=== PATIENT | female | born 1950 | race Caucasian/White ===

== ENCOUNTER → 2017-08-28 | Day surgery (SDC) | payer MEDICARE, BC ==
[2017-08-24 12:07] LABS: BASOPHILS % 0.4 % (0.0-1.0); EOSINOPHILS # (AUTO) 0.1 (0.0-0.4); EOSINOPHILS % 0.6 % (0.0-6.0); HEMATOCRIT 39.8 % (34.2-44.1); HEMOGLOBIN 13.6 g/dL (12.0-16.0); LYMPHOCYTES # (AUTO) 2.9 (1.0-3.2); LYMPHOCYTES % 31.7 % (18.0-39.1); MEAN CORPUSCULAR HEMOGLOBIN 32.9 pg (28-32); MEAN CORPUSCULAR HGB CONC 34.2 g/dL (31-35); MEAN CORPUSCULAR VOLUME 96.1 fL (81-99); MONOCYTES # (AUTO) 0.7 (0.2-0.8); MONOCYTES % 7.9 % (4.4-11.3); NEUTROPHILS # (AUTO) 5.3 (2.1-6.9); NEUTROPHILS % 58.6 % (38.7-80.0); PLATELET COUNT 161 x10e3/uL (140-360); RED BLOOD COUNT 4.14 x10e6/uL (3.6-5.1); RED CELL DISTRIBUTION WIDTH 12.4 % (11.7-14.4)
[~2017-08-28] MED LIST: ADVAIR 250/501 EA IH; AMOXICILLIN875 MG PO; ATORVASTATIN CA20 MG PO; ESTRADIOL1 MG PO; FENTANYL CITRATE/PF 100MCG/2 ML INJ ONE; FUROSEMIDE40 MG PO; GLUCAGON FOR INJ 1 MG VIAL ONE; GUAIATUSSIN AC118 ML; HYOSCYAMINE SULFATE 0.5 MG/ML AMP ONE; KETAMINE HCL INJ 50 MG/ML 10 ML VIAL ONE; LISINOPRIL10 MG PO; LISINOPRIL20 MG PO; METOPROLOL SUCC50 MG PO; MIDAZOLAM HCL 2 MG/2 ML VIAL ONE; MULTIVITAMIN; NORCO 7.5-3251 EACH PO; OMEGA-31000 MG; POTASSIUM CHLO10 ME1 PO; PREDNISONE20 MG PO; PROAIR HFA INH8.5 GM; PROGESTERONE200 MG; PROPOFOL IV EMULSION 10 MG/ML 50 ML VIAL ONE; THYROXINE; TRIAMTERENE; VITAMIN D5000 UNIT; XANAX; XANAX1 MG PO; Z.0.ATENOLOL100 MG PO; Z.0.PREMARIN0.625 MG PO; Z.0.PROZAC20 MG PO
[2017-08-28 16:12] LABS: WBC,FECAL (FECAL LACTOFERRIN) POSITIVE (NEGATIVE)
--- NOTE | 2017-08-28 16:17 | Operative Report ---
DATE OF PROCEDURE: August 28, 2017 REFERRING PHYSICIAN: Dr. Ramon Clark PROCEDURE PERFORMED: Esophagogastroduodenoscopy with biopsies and a colonoscopy with polypectomy and biopsies INDICATIONS FOR ESOPHAGOGASTRODUODENOSCOPY: Heartburn, indigestion, melena.. INDICATIONS FOR COLONOSCOPY: Colorectal cancer screening, diarrhea. MEDICATION: Patient was done under MAC. Please see anesthesiologist's note. PROCEDURE: With patient in the left lateral decubitus position, the flexible fiberoptic Olympus gastroscope was introduced into the esophagus under direct visualization without any difficulty. There was some patchy erythema noted in distal esophagus. There was a mild stricture noted at the GE junction that was dilated to size 52-Japanese Melvin. The scope was then advanced with ease into the stomach traversing a small sliding hiatal hernia. Mucosa overlying the antrum and the body revealed some patchy intense erythema and moderate edema and biopsies were obtained and sent to stain for H. pylori. The pylorus was of normal contour and shape. Was intubated with ease and the scope was advanced all the way to the 2nd portion of the duodenum. Biopsies were obtained from the proximal 2nd portion to rule out sprue. The mucosa overlying the duodenal bulb appeared to be within normal limits. The scope was then withdrawn back into the stomach and retroflexed. And mucosa overlying the fundus and the cardia appeared to be within normal limits. The scope was then straightened out. The stomach was decompressed. Scope subsequently withdrawn. Patient tolerated the procedure well. IMPRESSION: 1. Distal esophagitis. 2. Small sliding hiatal hernia. 3. Gastritis biopsied. Biopsy sent to stain for H. pylori. 4. Rule out sprue. PLAN: Follow up histology. Initiate Protonix 40 mg 1 p.o. q.a.m. a.c. PROCEDURE: Patient was then turned around and after adequate lubrication of the anal canal a flexible fiberoptic Olympus colonoscope was inserted into the rectum with ease and advanced all the way to the cecum. Mucosa overlying the cecum grossly appeared to be within normal limits. The ileocecal valve was intubated and the scope was advanced into the terminal ileum. Biopsies were obtained. The scope was then withdrawn back into the colon. It was then withdrawn slowly. Mucosa overlying the ascending, transverse, descending and sigmoid revealed some patchy mild inflammatory changes. Multiple random biopsies were obtained. One polyp was hot biopsied from the descending colon. The scope was then retroflexed into the distal rectum. Small internal hemorrhoids were noted, none of which was actively bleeding. The scope was then straightened out. The rectosigmoid area as well as the distal rectal area were decompressed. Scope was subsequently withdrawn after securing an adequate stool specimen that was sent for the appropriate stool studies. Patient tolerated procedure well. IMPRESSION 1. Colitis, mild , patchy. 2. Descending colon polyp hot biopsied. 3. Internal hemorrhoids, none actively bleeding. PLAN: Follow up histology. Initiate Bentyl 20 mg 1 p.o. t.i.d. and VSL#3 DS 1 p.o. daily. The patient might benefit from a followup colonoscopy in 5 years. Job#: [id number] cc:RAMON CLARK MD
[2017-08-29 14:18] LABS: C DIFFICILE TOXIN A&B AMP PROB NEGATIVE (NEGATIVE)
== END | disposition home or self-care (01) ==
LOC: OR 11:27
PROVIDERS: ATTEND Internal Medicine Gastroenterology
DX: K52.9 Noninfective gastroenteritis and colitis, unspecified (principal); K63.5 Polyp of colon; K29.70 Gastritis, unspecified, without bleeding; K22.2 Esophageal obstruction; K21.9 Gastro-esophageal reflux disease without esophagitis; K20.9 Esophagitis, unspecified; K44.9 Diaphragmatic hernia without obstruction or gangrene; K64.8 Other hemorrhoids; E03.9 Hypothyroidism, unspecified; J44.9 Chronic obstructive pulmonary disease, unspecified; I11.0 Hypertensive heart disease with heart failure; I50.9 Heart failure, unspecified; I45.10 Unspecified right bundle-branch block; F41.9 Anxiety disorder, unspecified; F32.9 Major depressive disorder, single episode, unspecified; Z88.8 Allergy status to other drugs, medicaments and biological substances; Z01.810 Encounter for preprocedural cardiovascular examination; Z01.812 Encounter for preprocedural laboratory examination; Z68.33 Body mass index [BMI] 33.0-33.9, adult; Z96.659 Presence of unspecified artificial knee joint
CPT/HCPCS: 36415; 43239; 43450; 45384; 83630; 83993; 85025; 87045; 87177; 87328; 87493; 93005; J1610; J1980; J2250; 45378

== ENCOUNTER → 2017-12-21 | Outpatient (CLI) | payer MEDICARE, BC ==
[~2017-12-21] MED LIST changes: -FENTANYL CITRATE/PF 100MCG/2 ML INJ ONE; -GLUCAGON FOR INJ 1 MG VIAL ONE; -HYOSCYAMINE SULFATE 0.5 MG/ML AMP ONE; -KETAMINE HCL INJ 50 MG/ML 10 ML VIAL ONE; -MIDAZOLAM HCL 2 MG/2 ML VIAL ONE; -PROPOFOL IV EMULSION 10 MG/ML 50 ML VIAL ONE
--- NOTE | 2017-12-21 14:53 | Diagnostic Imaging Report ---
History: Alzheimer's disease with late onset Comparison studies: CT head 09/20/2007 Technique: Sagittal T2; axial DWI, FLAIR, MPGR, T1, Coronal FLAIR. Intravenous contrast: None Findings: Scalp: Normal in signal . No masses . Bone marrow: Normal in signal intensity. Extra-axial: No masses, no fluid collections. Brain sulci: Mildly prominent. Ventricles: Mildly prominent . No hydrocephalus . Parenchyma: Scattered and confluent T2/flair hyperintensities of the periventricular and deep white matter. Scattered hyperintensities at the brendon. Symmetric volume loss at the bilateral hippocampi. No masses, hemorrhage, acute or chronic vascular insults. Suprasellar region: No abnormalities. Craniocervical junction: No abnormalities. Patent foramen magnum. No Chiari one malformation. Vessels: Normal flow-voids in the arteries and sinuses. Incidentally noted 1 cm cystic structure in the right parotid gland superficial lobe anterior aspect. IMPRESSION: 1. No acute abnormalities. 2. Moderate to severe chronic microvascular ischemic changes of the white matter. 3. Diffuse and symmetric mild volume loss Signed by: DR Billy Tucker M.D. on 12/21/2017 2:50 PM
== END ==
LOC: MRI 13:25
PROVIDERS: ATTEND Psychiatry & Neurology Clinical Neurophysiology
DX: G30.1 Alzheimer's disease with late onset (principal)
CPT/HCPCS: 70551

== ENCOUNTER 2018-01-02 16:00 | Outpatient (RCR) | payer MEDICARE, BC | END 2018-01-09 | LOC: PT 16:00 | PROVIDERS: ATTEND Psychiatry & Neurology Clinical Neurophysiology | DX: H81.11 Benign paroxysmal vertigo, right ear (principal) | CPT/HCPCS: 97112 ×3; 97162; G8981; G8982 ==

== ENCOUNTER 2018-01-10 13:33 | Outpatient (RCR) | payer MEDICARE, BC | END 2018-02-08 | LOC: PT 13:33 | PROVIDERS: ATTEND Psychiatry & Neurology Clinical Neurophysiology | DX: H81.11 Benign paroxysmal vertigo, right ear (principal); R26.9 Unspecified abnormalities of gait and mobility; R26.81 Unsteadiness on feet ==

== ENCOUNTER 2018-04-26 13:04 | Emergency (ER) | payer MEDICARE, BC ==
[~2018-04-26] VITALS: Ht 170.2 cm; Wt 94.3 kg
--- OUTSIDE RECORDS SUMMARY | 2018-04-26 13:09 | XMS REPORT | Continuity of Care Document ---
Author Author [facility] Interface Address Unknown Phone Unavailable Problems Problem Status Onset Date Classification Date Reported Comments Source J44.9 Active 01/10/2017 [facility] Discharge Diagnosis: 04/22/2015 04/25/2015 [facility] SOB Active 04/22/2015 [facility] Anxiety disorder<sup>1</sup> Active 12/23/2014 Problem 01/21/2017 Data migrated from [employer] on 03/29/15. 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 Originally documented as Anxiety disorder due to medical condition. [facility] Generalized anxiety disorder<sup>2</sup> Active 12/23/2014 Problem 01/21/2017 Data migrated from [facility] on 03/29/15. Originally documented as Generalized anxiety disorder. 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 She dramatically improved but has chronic pain and PTSD like residual sensitive to G BP and amitriptyline the latter of which we were able to taper off. Originally documented as Injury of femoral nerve. 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 The norco use is too high and needs to be reduced. x Originally documented as Toxic encephalopathy. [facility] [place]kbom disease<sup>5</sup> Active 12/23/2014 Problem 01/21/2017 Data migrated from [employer] on 03/29/15. The patient has had a worsening of generalized pain worse in the evening and a variety of other symptoms that all began abruptly after her knee surgery. Some of the symptoms like alopecia are almost certainly due to anxiety. Some sound like RLS and would be expected to start or worsen after blood loss. The elevated ferritin level is an acute phase reactant as would be expected post surgery and does not imply an iron problem. Likewise the increased MCV is as expected for the recent blood loss. The patient is overusing Gramercy and this is leading to some toxic encephalopathy. Originally documented as RLS (restless legs syndrome). [facility] Final: Abnormality of Gait 12/12/2014 [facility] Final: Stiffness of Joint, Not Elsewhere Classified, Involving Lower Leg 12/12/2014 [facility] Final: Aftercare Following Joint Replacement 12/12/2014 [facility] Final: Knee Joint Replaced by Other Means 12/12/2014 [facility] HTN (<span ID="[id number]">Confirmed</span>) Resolved Problem 01/21/2017 [facility] Chronic pain syndrome Active Problem 12/05/2016 [facility] Long-term use of other medications - High Risk Active Problem 12/05/2016 [facility] Chronic pain syndrome Active Problem 08/21/2017 [facility] Pain in right knee Active Problem 08/21/2017 Is[facility] Becerra Other extermination supervisor drug therapy Active Problem 08/21/2017 [facility] Becerra Spasm of muscle Active Problem 08/21/2017 [facility] Pain in joint, lower leg Active Problem 12/05/2016 [facility] Bec[facility] Pain in left knee Active Problem 08/21/2017 [facility] Bec[facility] Complex regional pain syndrome I of left lower limb Active Problem 08/21/2017 [facility] Bec[facility] Myofascial pain Active Problem 08/21/2017 [facility] Becerra Right shoulder pain, unspecified chronicity Active Diagnosis 03/09/2017 Isael Becerra RT KNEE Active [facility] TKR Active [facility] CHRONIC OBSTRUCTIVE PULMONARY DISEASE, U Active [facility] Medications Medication Details Route Status Patient Instructions Ordering Provider Order Date Source Levocetirizine Dihydrochloride 1 tablet in the evening Orally Active 5 MG Orally Once a day prn Dayanna 12/11/2016 Isael Becerra Lortab 1 tablet as needed Orally Active 7.5-325 MG Orally every 6 hrs Dayanna 07/10/2016 Isael Becerra Gramercy 1 tablet as needed Orally Active 7.5-325 MG Orally QID Dayanna 05/13/2016 Isael Becerra Butrans 1 patch to skin Transdermal No Longer Active 15 MCG/HR Transdermal 1 patch Dayanna 04/13/2016 Isael Becerra predniSONE 20 mg oral tablet 40 mg=2 tab, PO, Daily, X 5 day, # 10 tab, 0 Refill(s) Active 04/22/2015 [facility] 200 ACTUAT Albuterol 0.09 MG/ACTUAT Metered Dose Inhaler 2 puff, INHALATION, Q4H, PRN for wheezing, # 9 gm, 0 Refill(s) Active 04/22/2015 [facility] Lortab 1 tablet as needed Orally Active 7.5-325 MG Orally every 6 hrs [facility] Isael Becerra Metoprolol Succinate ER 1 tablet Orally Active 50 MG Orally Once a day [facility] Isael Becerra Estradiol 1 tablet Orally Active 0.5 MG Orally [facility] Isael Becerra Lisinopril not defined NA Active 20mg [facility] Isael Becerra Fluoxetine HCl not defined NA Active 20mg [facility] Isael Becerra Alprazolam not defined NA Active 1 mg [facility] Isael Becerra Atorvastatin Calcium 1 tablet Orally Active 20 MG Orally Once a day [facility] Isael Becerra Progesterone Micronized 1 capsule at bedtime Orally Active 200 MG Orally Once a day [facility] Isael Becerra Levothyroxine Sodium 1 tablet on an empty stomach in the morning Orally Active 75 MCG Orally Once a day [facility] Isael Becerra Hydrocodone-Acetaminophen 1 tablet NA Active 7.5/325mg QID [facility] Isael Becerra Furosemide 1 tablet Orally Active 80 MG Orally Once a day [facility] Isael Becerra Premarin not defined NA Active 0.625 mg [facility] Isael Becerra Potassium Chloride ER 1 capsule with food Orally Active 10 MEQ Orally Twice a day [facility] Isael Becerra Levocetirizine Dihydrochloride 1 tablet in the evening Orally Active 5 MG Orally Once a day prn [facility] Isael Becerra Metoprolol Succinate ER 1 tablet Orally Active 50 MG Orally Once a day [facility] Isael Becerra Furosemide 1 tablet Orally Active 80 MG Orally Once a day [facility] Isael Becerra Estradiol 1 tablet Orally Active 0.5 MG Orally [facility] Isael Becerra Levothyroxine Sodium 1 tablet on an empty stomach in the morning Orally Active 75 MCG Orally Once a day [facility] Isael Becerra Lisinopril not defined NA Active 20mg [facility] Isael Becerra Alprazolam not defined NA Active 1 mg [facility] Isael Becerra Atorvastatin Calcium 1 tablet Orally Active 20 MG Orally Once a day [facility] Isael Becerra Progesterone Micronized 1 capsule at bedtime Orally Active 200 MG Orally Once a day [facility] Is[facility] Bec[facility] Lortab 1 tablet as needed Orally Active 7.5-325 MG Orally every 6 hrs Dayanna Becerra Hydrocodone-Acetaminophen 1 tablet NA Active 7.5/325mg QID [facility] Bec[facility] Fluoxetine HCl not defined NA Active 20mg [facility] Isael Becerra Gabapentin Unknown NA Active 300mg [facility] Isael Becerra Allergies, Adverse Reactions, Alerts Substance Category Reaction Severity Reaction type Status Date Reported Comments Source N.K.D.A. Adverse Reaction Info Not Available Adverse Reaction Active 03/07/2017 [facility] Immunizations Immunization Date Given Site Status Last Updated Comments Source Results Order Name Results Value Reference Range Date Interpretation Comments Source Chest 2 views DX Chest 2 views DX Clinical Indication: Annual checkup Comparison: April 22, 2015 FINDINGS: The PA and lateral chest radiographs shows normal lung volumes without interstitial or airspace opacities, pleural effusions or pneumothorax. The heart size and pulmonary vasculature are normal. The trachea is midline. There are no clinically significant osseous abnormalities noted. IMPRESSION: No chest radiographic evidence of acute cardiopulmonary disease. SL: [id number] 01/18/2017 - - Read by: Reymundo Tam MD Dictated Date/time: 01/18/17 14:07 Electronically Signed by: Reymundo Tam MD 01/18/17 14:07 FINAL REPORT [facility] URINE AND STOOL UA Urobilinogen <=1.0 mg/dL 0.1 - 1.0 04/22/2015 [facility] URINE AND STOOL UA Color Ltyellow 04/22/2015 [facility] URINE AND STOOL UA Nitrite Negative (04/22/15 11:27 AM) Negative 04/22/2015 [facility] URINE AND STOOL UA Sq Epi Few /LPF Few /LPF 04/22/2015 [facility] URINE AND STOOL UA WBC null 0 - 5 04/22/2015 [facility] URINE AND STOOL UA RBC 1 /HPF 0 - 2 04/22/2015 [facility] URINE AND STOOL UA Leuk Est Negative (04/22/15 11:27 AM) Negative 04/22/2015 [facility] URINE AND STOOL UA Turbidity Clear (04/22/15 11:27 AM) Clear 04/22/2015 [facility] URINE AND STOOL UA pH 5.0 5.0 - 8.0 04/22/2015 [facility] URINE AND STOOL UA Spec Grav 1.018 <=1.030 04/22/2015 [facility] URINE AND STOOL UA Bacteria Occasional /HPF None Seen /HPF 04/22/2015 [facility] URINE AND STOOL UA Ketones Negative mg/dL Negative mg/dL 04/22/2015 [facility] URINE AND STOOL UA Glucose Negative mg/dL Negative mg/dL 04/22/2015 [facility] URINE AND STOOL UA Bili Negative *NA* (04/22/15 11:27 AM) Negative 04/22/2015 [facility] URINE AND STOOL UA Blood Small *ABN* (04/22/15 11:27 AM) Negative 04/22/2015 [facility] URINE AND STOOL UA Protein Negative mg/dL Negative mg/dL 04/22/2015 [facility] CHEM PANEL B/C Ratio 20 6 - 25 04/22/2015 [facility] CHEM PANEL Globulin 3.6 g/dL 2.0 - 4.0 04/22/2015 [facility] CHEM PANEL AGAP 13.9 meq/L 10.0 - 20.0 04/22/2015 [facility] CHEM PANEL A/G Ratio 0.9 0.7 - 1.6 04/22/2015 [facility] CHEM PANEL eGFR 73 mL/min/1.73m2 04/22/2015 Result Comment: The eGFR is calculated using the CKD-EPI formula. In most young, healthy individuals the eGFR will be >90 mL/min/1.73m2. The eGFR declines with age. An eGFR of 60-89 may be normal in some populations, particularly the elderly, for whom the CKD-EPI formula has not been extensively validated. Use of the eGFR is not recommended in the following populations: Individuals with unstable creatinine concentrations, including patients and those with serious co-morbid conditions. Patients with extremes in muscle mass or diet. The data above are obtained from the National Kidney Disease Education Program (NKDEP) which additionally recommends that when the eGFR is used in patients with extremes of body mass index for purposes of drug dosing, the eGFR should be multiplied by the estimated BMI. [facility] CHEM PANEL Glucose Lvl 111 mg/dL 70 - 99 04/22/2015 [facility] CHEM PANEL Creatinine Lvl 0.85 mg/dL 0.50 - 1.40 04/22/2015 [facility] CHEM PANEL Sodium Lvl 136 meq/L 135 - 145 04/22/2015 [facility] CHEM PANEL Calcium Lvl 8.7 mg/dL 8.5 - 10.5 04/22/2015 [facility] CHEM PANEL Total Protein 7.0 g/dL 6.4 - 8.4 04/22/2015 [facility] CHEM PANEL Albumin Lvl 3.4 g/dL 3.5 - 5.0 04/22/2015 [facility] CHEM PANEL CO2 27 meq/L 24 - 32 04/22/2015 [facility] CHEM PANEL Chloride Lvl 99 meq/L 95 - 109 04/22/2015 [facility] CHEM PANEL Potassium Lvl 3.9 meq/L 3.5 - 5.1 04/22/2015 [facility] CHEM PANEL ALT 18 unit/L 0 - 65 04/22/2015 [facility] CHEM PANEL Bili Total 0.4 mg/dL 0.2 - 1.3 04/22/2015 [facility] CHEM PANEL AST 16 unit/L 0 - 37 04/22/2015 [facility] CHEM PANEL Alk Phos 97 unit/L 39 - 136 04/22/2015 [facility] CHEM PANEL BUN 17 mg/dL 7 - 22 04/22/2015 [facility] HEMATOLOGY Platelet 194 K/CMM 133 - 450 04/22/2015 [facility] HEMATOLOGY MPV 8.5 fL 7.4 - 10.4 04/22/2015 [facility] HEMATOLOGY RDW 13.4 % 11.5 - 14.5 04/22/2015 [facility] MCH 32.2 pg 27.0 - 31.0 04/22/2015 [facility] HEMATOLOGY Hct 35.7 % 36.0 - 48.0 04/22/2015 [facility] HEMATOLOGY MCV 98.5 fL 80.0 - 98.0 04/22/2015 [facility] HEMATOLOGY MCHC 32.7 g/dL 32.0 - 36.0 04/22/2015 [facility] HEMATOLOGY WBC 6.8 K/CMM 3.7 - 10.4 04/22/2015 [facility] HEMATOLOGY RBC 3.62 M/CMM 4.20 - 5.40 04/22/2015 [facility] HEMATOLOGY Hgb 11.7 g/dL 12.0 - 16.0 04/22/2015 [facility] HEMATOLOGY Monocytes # 0.6 K/CMM 0.0 - 0.8 04/22/2015 [facility] HEMATOLOGY Eosinophils # 0.2 K/CMM 0.0 - 0.5 04/22/2015 [facility] HEMATOLOGY Macrocyte 1+ *ABN* (04/22/15 9:45 AM) None Seen 04/22/2015 [facility] Basophils # 0.1 K/CMM 0.0 - 0.2 04/22/2015 [facility] HEMATOLOGY Segs 66.5 % 45.0 - 75.0 04/22/2015 [facility] Lymphocytes 20.5 % 20.0 - 40.0 04/22/2015 [facility] Monocytes 9.6 % 2.0 - 12.0 04/22/2015 [facility] Eosinophils 2.6 % 0.0 - 4.0 04/22/2015 [facility] Basophils 0.8 % 0.0 - 1.0 04/22/2015 [facility] Lymphocytes # 1.4 K/CMM 1.0 - 5.5 04/22/2015 [facility] Segs-Bands # 4.5 K/CMM 1.5 - 8.1 04/22/2015 [facility] Chest 2 views DX Chest 2 views DX NAME: EUGENIO GREEN : 1950 SEX: F Ordering Physician: Lang Gavin Chest 2 views : Apr 22, 2015 10:21:00 AM. CLINICAL INDICATION: Coughing. Comparison Examination: 03/26/2009. FINDINGS: Degenerative changes and mild scoliosis in the spine. Surgical clips in the right upper quadrant of the abdomen. Stable mild enlargement of the cardiac silhouette. The lung markings are more prominent now. No pleural effusions or confluent airspace opacities. Mildly tortuous aorta. IMPRESSION: 1. Mild enlargement of the cardiac silhouette. 2. Prominent lung markings. Differential considerations include pulmonary vascular congestion, interstitial pneumonitis, and/or pulmonary fibrosis. SL: 14 04/22/2015 - - Read by: Anish Kasper MD Dictated Date/time: 04/22/15 10:23 Electronically Signed by: Anish Kasper MD 04/22/15 10:29 FINAL REPORT [facility] Vital Signs Vital Sign Value Date Comments Source Weight 219.4 03/07/2017 [facility] Height 67 03/07/2017 [facility] Temperature Oral (F) 97.6 F 03/07/2017 [facility] Heart Rate 76 03/07/2017 [facility] Taoer Diastolic (mm Hg) 60 03/07/2017 [facility] Systolic (mm Hg) 142 03/07/2017 [facility] Weight 216.5 02/05/2017 [facility] Height 67 02/05/2017 [facility] Temperature Oral (F) 97 F 02/05/2017 [facility] Heart Rate 64 02/05/2017 [facility] Bec[facility] Diastolic (mm Hg) 80 02/05/2017 [facility] Bec[facility] Systolic (mm Hg) 122 02/05/2017 [facility] Weight 222.8 12/04/2016 [facility] Height 67 12/04/2016 [facility] Temperature Oral (F) 98.3 F 12/04/2016 [facility] Heart Rate 70 12/04/2016 [facility] Diastolic (mm Hg) 66 12/04/2016 [facility] Bec[facility] Systolic (mm Hg) 122 12/04/2016 [facility] Weight 222.1 11/03/2016 [facility] Bec[facility] Height 67 11/03/2016 [facility] Bec[facility] Temperature Oral (F) 97.4 F 11/03/2016 [facility] Heart Rate 76 11/03/2016 [facility] Bec[facility] Diastolic (mm Hg) 62 11/03/2016 [facility] Becerra Systolic (mm Hg) 132 11/03/2016 [facility] Weight 218.9 08/09/2016 [facility] Bec[facility] Height 67 08/09/2016 [facility] Bec[facility] Temperature Oral (F) 96.1 F 08/09/2016 [facility] Bec[facility] Heart Rate 68 08/09/2016 [facility] Becerra Diastolic (mm Hg) 80 08/09/2016 Is[facility] Becerra Systolic (mm Hg) 132 08/09/2016 [facility] Weight 210.4 07/10/2016 [facility] Bec[facility] Height 67 07/10/2016 [facility] Becerra Temperature Oral (F) 98.4 F 07/10/2016 [facility] Bec[facility] Heart Rate 84 07/10/2016 [facility] Becerra Diastolic (mm Hg) 58 07/10/2016 [facility] Becerra Systolic (mm Hg) 114 07/10/2016 [facility] Bec[facility] Weight 212 04/13/2016 [facility] Becerra Height 67 04/13/2016 [facility] Bec[facility] Temperature Oral (F) 96.6 F 04/13/2016 [facility] Diastolic (mm Hg) 82 04/13/2016 [facility] Bec[facility] Systolic (mm Hg) 128 04/13/2016 [facility] Bec[facility] Systolic (mm Hg) 109 04/22/2015 [facility] Diastolic (mm Hg) 61 04/22/2015 [facility] Heart Rate 82 04/22/2015 [facility] Temperature Oral (F) 99 F 04/22/2015 [facility] Height 170.18 cm 04/22/2015 [facility] BMI Calculated 33.27 04/22/2015 [facility] Weight 96.364 04/22/2015 [facility] Temperature Oral (F) 98.5 F 04/22/2015 [facility] Respitory Rate 18 04/22/2015 [facility] Heart Rate 86 04/22/2015 [facility] Systolic (mm Hg) 159 04/22/2015 [facility] Diastolic (mm Hg) 87 04/22/2015 [facility] Encounters Location Location Details Encounter Type Encounter Number Reason For Visit Attending Provider ADM Date DC Date Status Source [facility] [place] [facility] [id number] Gorge Vega 09/01/2014 10/01/2014 [facility] [place] [facility] [id number] Gorge Vega 11/17/2014 12/09/2014 [facility] [id number] Karin Laird 04/22/2015 04/22/2015 [facility] Franck Becerra MD [facility] [id number] 04/13/2016 04/13/2016 Is[facility] Bec[facility] Out[facility] [id number] Chandler Raymundo 01/18/2017 01/19/2017 [facility] Outpatient [id number] FRANCK MANRIQUEZ 01/21/2018 [facility] Procedures Procedure Code Date Perfomer Comments Source Knee replacement<sup>1</sup> [id number] bilateral [facility]
[2018-04-26] MEDS ORDERED: ACETAMINOPHEN 325 MG TAB PO ONE (15:00)
[2018-04-26 15:55] LABS: STREPTOCOCCUS GRP A ANTIGEN NEGATIVE (NEGATIVE)
[2018-04-26 16:13] LABS: INFLUENZAE A&B ANTIGEN (RAPID) NEGATIVE (NEGATIVE)
[2018-04-26 17:37] VITALS: BP 92/65
== END 2018-04-26 17:40 | disposition home or self-care (01) ==
LOC: ER 13:04
DX: R50.9 Fever, unspecified (principal); R05 Cough; I10 Essential (primary) hypertension
CPT/HCPCS: 83518; 87070; 87400; 99283

== ENCOUNTER 2019-12-22 16:04 | Emergency (ER) | payer MEDICARE, BC ==
[~2019-12-22] VITALS: Ht 170.2 cm; Wt 94.3 kg
[2019-12-22 16:51] LABS: BASOPHILS % 0.5 % (0.0-1.0); EOSINOPHILS # (AUTO) 0.1 (0.0-0.4); EOSINOPHILS % 1.8 % (0.0-6.0); HEMOGLOBIN 12.6 g/dL (12.0-16.0); LYMPHOCYTES # (AUTO) 1.9 (1.0-3.2); LYMPHOCYTES % 33.1 % (18.0-39.1); MEAN CORPUSCULAR HEMOGLOBIN 32.9 pg (28-32); MEAN CORPUSCULAR HGB CONC 33.2 g/dL (31-35); MEAN CORPUSCULAR VOLUME 99.2 fL (81-99); MONOCYTES # (AUTO) 0.5 (0.2-0.8); MONOCYTES % 8.7 % (4.4-11.3); NEUTROPHILS # (AUTO) 3.1 (2.1-6.9); NEUTROPHILS % 55.5 % (38.7-80.0); PLATELET COUNT 160 x10e3/uL (140-360); RED BLOOD COUNT 3.83 x10e6/uL (3.6-5.1); RED CELL DISTRIBUTION WIDTH 12.8 % (11.7-14.4)
--- OUTSIDE RECORDS SUMMARY | 2019-12-22 17:01 | XMS REPORT | Continuity of Care Document ---
Author Author Leelee Edouard Cost Effective Data EUGENIO Macias [facility] [employer] Information Exchange Address Unknown Phone Unavailable Care Team Providers Care Cherry Sorter Name Role Phone [facility] Unavailable Un available Problems Problem Status Onset Date Classification Date Reported Comments Source M25.551 - PAIN IN RIGHT HIP M25.552 - PA Active 02/14/2019 [facility] J44.9 Active 01/10/2017 [facility] Discharge Diagnosis: 04/22/2015 04/25/2015 [facility] SOB Active 0 04/22/2015 [facility] Anxiety disorder (disorder) Ac tive 12/23/2014 Problem 02/17/2019 Data migrated from [employer] on . 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 Originally documented as Anxiety disorder due to medical condition. [facility] Marian ast Generalized anxiety disorder (disorder) Active 12/23/2014 Problem 02/17/2019 Data migrated from [employer] on 03/29/15. Originally documented as Generalized anxiety disorder. 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 She dramatically improved but has chronic pain and PTSD like residual sensitive to GBP and amitriptyline the latter of which we were able to taper off. Originally documented as Injury of femoral nerve. [facility] Dimitri Toxic encephalopathy (disorder) Active 12/23/2014 Problem 02/17/2019 Data migrated from [employer] on 03/29/15. The norco use is too high and needs to be reduced. x Originally documented as Toxic encephalopathy. [facility] Dimitri Restless legs (disorder) Active 12/23/2014 Problem 02/17/2019 Data migrated from [employer] on . The patient has had a worsening of [...] recent blood loss. The patient is overusing [place] and this is leading to some toxic encephalopathy. Originally documented as RLS (restless legs syndrome). 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 therapy Active Problem 02/2018 Isael Taoer Spasm of muscle Active Problem 08/21/2017 Isael Becerra Chronic pain syndrome Active Problem 08/21/2017 Isael Becerra Complex regional pain syndrome I of left lower limb Active Problem 08/21/2017 Isael Becerra Myofascial pain Active Problem 08/21/2017 Isael Becerra Right shoulder pain, unspecified chronicity Active Diagnosis 03/09/2017 Isael Becerra Chronic pain syndrome Active Problem 12/05/2016 Isael Becerra Long-term (current) use of other medicat ions - High Risk Active Prob guillermo 12/05/2016 Isael Taoer Pain in joint, lower leg Active Problem 12/05/2016 Isael Becerra Final: Abnormality of Gait 12/12/2014 [facility] [place] Final: Stiffness of Joint, Not Elsewhere Classified, Involving Lower Leg 12/12/2014 [facility] [place] Final: Aftercare Following Joint Replacement 12/12/2014 [facility] Final: Knee Joint Replaced by Other Means 12/12/2014 [facility] Hypertensive disorder, systemic arterial (disorder) Resolved Problem 02/17/2019 [facility] KNEE Active [facility] TKR Active [facility] [place] CHRONIC OBSTRUCTIVE PULMONARY DISEASE, U Active [facility] Medications Medication Details Route Status Patient Instructions Ordering Provider Order Date Source Levocetirizine Dihydrochloride 1 tablet in the evening Orally Active 5 MG Orally Once a day prn Ez simone 12/11/2016 Isael Taoer Lortab 1 tablet as needed Orally Active 7.5-325 MG Orally every 6 hrs [facility] 07/10/2016 Isael Hernan [place] 1 tablet as needed Orally Active 7.5-325 MG Orally QID [facility] 05/13/2016 Isael Hernan Butrans 1 patch to skin Transdermal No Longer Active 15 MCG/HR Transdermal 1 patch [facility] 04/13/2016 Isael Becerra predniSONE 20 mg oral tablet 4 0 mg = 2 tab, PO, Daily, X 5 day, # 10 tab, 0 Refill(s) Active 04/22/2015 [facility] 200 ACTUAT Albuterol 0.09 MG/ACTUAT [place] red Dose Inhaler 2 puff, INHALATION, Q4H, PRN for wheezin g, # 9 gm, 0 Refill(s) Active 04/22/2015 [facility] Metoprolol Succinate ER 1 tabl et Orally Active 50 MG Orally Once a day [facility] Isael Becerra Furosemide 1 tablet Orally Active 80 MG Orally Once a day [facility] Hernan Estradiol 1 tablet Orally Active 0.5 MG Orally [facility] Hernan Levothyroxine Sodium 1 tablet on an empty stomach in the morning Orally Active 75 MCG Orally Once a day [facility] Isael Becerra Lisinopril not defined NA Active 20mg [facility] Isael Becerra Alprazolam not defined NA Active 1 mg [facility] Isael Becerra Atorvastatin Calcium 1 tablet Orally Active 20 MG Orally Once a day [facility] Isael Becerra Progesterone Micronized 1 caps ule at bedtime Orally Active 200 MG Orally Once a day [facility] Isael Becerra Lortab 1 tablet as needed Orally Active 7.5-325 MG Orally every 6 hrs [facility] Isael Becerra Hydrocodone-Acetaminophen 1 ta blet NA Active 7. 5/325mg QID [facility] Hernan Fluoxetine HCl not defined NA Active 20mg [facility] yudith Becerra Hydrocodone-Acetaminophen 1 ta blet NA Active 7. 5/325mg QID [facility] yudith Becerra Lisinopril not defined NA Active 20mg [facility] Isael Becerra Atorvastatin Calcium 1 tablet Orally Active 20 MG Orally Once a day [facility] Isael Becerra Progesterone Micronized 1 caps ule at bedtime Orally Active 200 MG Orally Once a day Dayannajojo Becerra Alprazolam not defined NA Active 1 mg [facility] Isael Becerra Fluoxetine HCl not defined NA Active 20mg [facility] Sebastien Becerra Estradiol 1 tablet Orally Active 0.5 MG Orally [facility] Sebastien Becerra Levothyroxine Sodium 1 tablet on an empty stomach in the morning Orally Active 75 MCG Orally Once a day [facility] jojo Becerra Metoprolol Succinate ER 1 tabl et Orally Active 50 MG Orally Once a day [facility] Isael Becerra Lortab 1 tablet as needed Orally Active 7.5-325 MG Orally every 6 hrs [facility] Isael Becerra Furosemide 1 tablet Orally Active 80 MG Orally Once a day [facility] Sebastien Becerra Premarin not defined NA Active 0.625 mg [facility] Isael Becerra Potassium Chloride ER 1 capsul e with food Orally Active 10 MEQ Orally Twice a day Daaynna Becerra Levocetirizine Dihydrochloride 1 tablet in the evening Orally Active 5 MG Orally Once a day prn [facility] Isael Becerra Gabapentin Unknown NA Active 300mg [facility] Isael Becerra Allergies, Adverse Reactions, Alerts Substance Category Reaction Severity Reaction type Status Date Reported Comments Source N.K.D.A. Adverse Reaction Info Not Available Adverse Reaction Active 03/07/2017 Isael Becerra No Known Medication Allergies Assertion Drug aller gy OPID [place] Immunizations No Data Provided for This Section Results Order Name Results Value Reference Range Date Interpretation Comments Source URINE AND STOOL UA Urobilinogen <=1.0 mg/dL 0.1 - 1.0 04/22/2015 [facility] URINE AND STOOL UA Color Ltyellow 04/22/2015 [facility] URINE AND STOOL UA Nitrite Negative (04/22/15 11:27 AM) Negative 04/22/2015 [facility] URINE AND STOOL UA Sq Epi Few /LPF Few /LPF 04/22/2015 [facility] URINE AND STOOL UA WBC <1 0 - 5 04/22/2015 [facility] URINE AND STOOL UA RBC 1 0 - 2 04/22/2015 [facility] URINE AND STOOL UA Leuk Est Negative (04/22/15 11:27 AM) Negative 04/22/2015 [facility] URINE AND STOOL UA Turbidity Clear (04/22/15 11:27 AM) Clear 04/22/2015 [facility] URINE AND STOOL UA pH 5.0 5.0 - 8.0 04/22/2015 [facility] URINE AND STOOL UA Spec Grav 1.018 <=1.030 04/22/2015 [facility] URINE AND STOOL UA Bacteria Occasional /HPF None Seen /HPF 04/22/2015 [facility] URINE AND STOOL UA Ketones Negative mg/dL Negative mg/dL 04/22/2015 [facility] URINE AND STOOL UA Glucose Negative mg/dL Negative mg/dL 04/22/2015 [facility] URINE AND STOOL UA Bili Negative *NA* (04/22/15 11:27 AM) Negative 04/22/2015 [facility] URINE AND STOOL UA Blood Small *ABN* (04/22/15 11:27 AM) Negative 04/22/2015 [facility] URINE AND STOOL UA Protein Negative mg/dL Negative mg/dL 04/22/2015 [facility] CHEM PANEL B/C Ratio 20 6 - 25 04/22/2015 [facility] CHEM PANEL Globulin 3.6 2.0 - 4.0 04/22/2015 [facility] CHEM PANEL AGAP 13.9 10.0 - 20.0 04/22/2015 [facility] CHEM PANEL A/G Ratio 0.9 0.7 - 1.6 04/22/2015 [facility] CHEM PANEL eGFR 73 04/22/2015 Result Comment: The eGFR is calculated [...] should be multiplied by the estimated BMI. [facility] CHEM PANEL Glucose Lvl 111 70 - 99 04/22/2015 [facility] CHEM PANEL Creatinine Lvl 0.85 0.50 - 1.40 04/22/2015 [facility] CHEM PANEL Sodium Lvl 136 135 - 145 04/22/2015 [facility] CHEM PANEL Calcium Lvl 8.7 8.5 - 10.5 04/22/2015 [facility] CHEM PANEL Total Protein 7.0 6.4 - 8.4 04/22/2015 [facility] CHEM PANEL Albumin Lvl 3.4 3.5 - 5.0 04/22/2015 [facility] CHEM PANEL CO2 27 24 - 32 04/22/2015 [facility] CHEM PANEL Chloride Lvl 99 95 - 109 04/22/2015 [facility] CHEM PANEL Potassium Lvl 3.9 3.5 - 5.1 04/22/2015 [facility] CHEM PANEL ALT 18 0 - 65 04/22/2015 [facility] CHEM PANEL Bili Total 0.4 0.2 - 1.3 04/22/2015 [facility] CHEM PANEL AST 16 0 - 37 04/22/2015 [facility] CHEM PANEL Alk Phos 97 39 - 136 04/22/2015 [facility] CHEM PANEL BUN 17 7 - 22 04/22/2015 [facility] HEMATOLOGY Platelet 194 133 - 450 04/22/2015 [facility] HEMATOLOGY MPV 8.5 7.4 - 10.4 04/22/2015 [facility] HEMATOLOGY RDW 13.4 11.5 - 14.5 04/22/2015 [facility] HEMATOLOGY MCH 32.2 27.0 - 31.0 04/22/2015 [facility] HEMATOLOGY Hct 35.7 36.0 - 48.0 04/22/2015 [facility] HEMATOLOGY MCV 98.5 80.0 - 98.0 04/22/2015 [facility] MCHC 32.7 32.0 - 36.0 04/22/2015 [facility] HEMATOLOGY WBC 6.8 3.7 - 10.4 04/22/2015 [facility] HEMATOLOGY RBC 3.62 4.20 - 5.40 04/22/2015 [facility] HEMATOLOGY Hgb 11.7 12.0 - 16.0 04/22/2015 [facility] HEMATOLOGY Monocytes # 0.6 0.0 - 0.8 04/22/2015 [facility] HEMATOLOGY Eosinophils # 0.2 0.0 - 0.5 04/22/2015 [facility] HEMATOLOGY Macrocyte 1+ *ABN* (04/22/15 9:45 AM) None Seen 04/22/2015 [facility] HEMATOLOGY Basophils # 0.1 0.0 - 0.2 04/22/2015 [facility] HEMATOLOGY Segs 66.5 45.0 - 75.0 04/22/2015 [facility] HEMATOLOGY Lymphocytes 20.5 20.0 - 40.0 04/22/2015 [facility] HEMATOLOGY Monocytes 9.6 2.0 - 12.0 04/22/2015 [facility] HEMATOLOGY Eosinophils 2.6 0.0 - 4.0 04/22/2015 [facility] HEMATOLOGY Basophils 0.8 0.0 - 1.0 04/22/2015 [facility] Lymphocytes # 1.4 1.0 - 5.5 04/22/2015 [facility] HEMATOLOGY Segs-Bands # 4.5 1.5 - 8.1 04/22/2015 [facility] Pathology Reports No Data Provided for This Section Diagnostic Reports Report Value Date Source Pelvis AP DX EXAM: Pelvis AP D X HISTORY: - M25.551 Pain in right hip; M25.552 Pain in left hip COMPARISON: None AP pelvis IMPRESSION: There is bilateral moderate severe hip joint space narrowing without significant osteophyte formation. No fracture or evidence of avascular necrosis. 02/14/2019 [facility] Chest 2 views DX Clinical Myra cation: Annual checkup Comparison: April 22, 2015 FINDINGS: The PA and lateral chest radiographs shows normal lung volumes without interstitial or airspace opacities, pleural effusions or pneumothorax. The heart size and pulmonary vasculature are normal. The trachea is midline. There are no clinically significant osseous abnormalities noted. IMPRESSION: No chest radiographic evidence of acute cardiopulmonary disease. SL: [id number] 01/18/2017 [facility] Chest 2 views DX NAME: EUGENIO HOFFMAN : 1950 SEX: F Ordering Physician: Lang [...] IMPRESSION: 1. Mild enlargement of the cardiac silho uette. 2. Prominent lung markings. Differential considerations include pulmonary vascular congestion, interstitial pneumonitis, and/or pulmonary fibrosis. SL: 14 04/22/2015 [facility] Consultation Notes No Data Provided for This Section Discharge Summaries No Data Provided for This Section History and Physicals No Data Provided for This Section Vital Signs Vital Sign Value Date Comments Source Weight 219.4 03/07/2017 Isael Becerra Height 67 1 05/08/2016 Isael Becerra Temperature Oral (F) 97.6 F 03/07/2017 Isael Becerra Heart Rate 76 03/07/2017 Isael Becerra Diastolic (mm Hg) 60 03/07/2017 Isael Becerra Systolic (mm Hg) 142 03/07/2017 Isael Becerra Weight 216.5 02/05/2017 Isael Becerra Height 67 1 04/07/2016 Isael Becerra Temperature Oral (F) 97 F 02/05/2017 Isael Becerra Heart Rate 64 02/05/2017 Isael Becerra Diastolic (mm Hg) 80 02/05/2017 Isael Becerra Systolic (mm Hg) 122 02/05/2017 Isael Becerra Weight 222.8 12/04/2016 Isael Becerra Height 67 0 12/04/2016 Isael Becerra Temperature Oral (F) 98.3 F 12/04/2016 Isael Becerra Heart Rate 70 12/04/2016 Isael Becerra Diastolic (mm Hg) 66 12/04/2016 Isael Becerra Systolic (mm Hg) 122 12/04/2016 Isael Becerra Weight 222.1 11/03/2016 Isael Becerra Height 67 0 11/03/2016 Isael Becerra Temperature Oral (F) 97.4 F 11/03/2016 Isael Becerra Heart Rate 76 11/03/2016 Isael Becerra Diastolic (mm Hg) 62 11/03/2016 Isael Becerra Systolic (mm Hg) 132 11/03/2016 Isael Becerra Weight 218.9 08/09/2016 Isael Becerra Height 67 0 08/09/2016 Isael Becerra Temperature Oral (F) 96.1 F 08/09/2016 Isael Becerra Heart Rate 68 08/09/2016 Isael Becerra Diastolic (mm Hg) 80 08/09/2016 Isael Becerra Systolic (mm Hg) 132 08/09/2016 Isael Becerra Weight 210.4 07/10/2016 Isael Becerra Height 67 0 07/10/2016 Isael Becerra Temperature Oral (F) 98.4 F 07/10/2016 Isael Becerra Heart Rate 84 07/10/2016 Isael Becerra Diastolic (mm Hg) 58 07/10/2016 Isael Becerra Systolic (mm Hg) 114 07/10/2016 Isael Becerra Weight 212 04/13/2016 Isael Becerra Height 67 0 04/13/2016 Isael Taoer Temperature Oral (F) 96.6 F 04/13/2016 Isael Taoer Diastolic (mm Hg) 82 04/13/2016 Isael Becerra Systolic (mm Hg) 128 04/13/2016 Isaelamy Becerra Systolic (mm Hg) 109 04/22/2015 [facility] Diastolic (mm Hg) 61 04/22/2015 [facility] Heart Rate 82 04/22/2015 [facility] Temperature Oral (F) 99 F 04/22/2015 [facility] Height 170.18 cm 04/22/2015 [facility] BMI Calculated 33.27 04/22/2015 [facility] Weight 96.364 04/22/2015 [facility] Temperature Oral (F) 98.5 F 04/22/2015 [facility] Respitory Rate 18 04/22/2015 [facility] Heart Rate 86 04/22/2015 [facility] Systolic (mm Hg) 159 04/22/2015 [facility] Diastolic (mm Hg) 87 04/22/2015 [facility] Encounters Location Location Details Encounter Type Encounter Number Reason For Visit Attending Provider ADM Date DC Date Status Source [facility] [place] [facility] [id number] [facility] 09/01/2014 10/01/2014 [facility] [place] [facility] Patients [id number] [facility] 11/17/2014 12/09/2014 [facility] [id number] 00 Karin Laird 04/22/2015 04/22/2015 [facility] Franck Becerra MD [facility] [id number] 04/13/19 17 04/13/2016 [facility] Outpatient [id number] Chandler Raymundo 01/18/2017 01/19/2017 [facility] Outpatient [id number] [facility] 01/21/2018 [facility] Ambulatory Pre-Reg [id number] [facility] 01/21/2018 01/21/2018 [facility] [id number] [facility] 07/25/2018 Active [facility] Outpatient [id number] Franck Frankel 07/25/2018 07/26/2018 [facility] Neu[facility] Phone Message [id number] 08/20/2018 08/22/2018 [facility] [place] [facility] Di[facility] Services [id number] 01 Gwendolyn Dee 02/14/2019 02/15/2019 [facility] Procedures Procedure Code Date Perfomer Comments Source Knee replacement<sup>1</sup> 1 [id number] bilateral [facility], [facility], [facility] Assessment and Plan No Data Provided for This Section Plan of Care No Data Provided for This Section Social History Social History Date Source Social History ElementQualifiersDate Rep orted Tobacco Use: . Are you a:: never smoker Apr 13, 2016 Pets: none. Apr 13, 2016 Marital Status: . Apr 13, 2016 Diet: no. Apr 13, 2016 Caffeine: yes. frequency: Apr 13, 2016 Exercise: no. Apr 13, 2016 Alcohol: no. Apr 13, 2016 Travel outside [place]: no. Apr 13, 2016 Occup. exposure: none. Apr 13, 2016 Occupation: unemployed. Apr 13, 2016 04/13/2016 Isael Taoer Social History TypeResponse Smoking Status Former smoker; Exposure to Tobacco Smoke None; Cigarette Smoking Last 365 Days Yes; Reg Smoking Cessation Counseling No 04/22/2015 [facility] Social History TypeResponse Smoking Status Former smoker; Exposure to Tobacco Smoke None; Cigarette Smoking Last 365 Days Yes; Reg Smoking Cessation Counseling No entered on: 04/22/15 04/22/2015 [facility] Social History TypeResponse Smoking Status Former smoker; Exposure to Tobacco Smoke None; Cigarette Smoking Last 365 Days Yes; Reg Smoking Cessation Counseling No entered on: 04/22/15 04/22/2015 [facility] No data available for this section 12/09/2014 [facility] Family History No Data Provided for This Section Advance Directives No Data Provided for This Section Functional Status No Data Provided for This Section
--- OUTSIDE RECORDS SUMMARY | 2019-12-22 17:02 | XMS REPORT | Continuity of Care Document ---
Author Author [facility] t Organization [facility] Address [address] [place] [address] Phone Unavailable Care Team Providers Care Receiver Setter Name Role Phone Kimberly CLARK PCP Oliverio Dee Attphys Pito Frankel Attphys Javier ZHANG Attphys Unavailable Chandler Raymundo Attphys Karin Laird Attphys Rasheed Vgea Attphys Payers Payer Name Policy Type Policy Number Effective Date Expiration Date [id number] 2016 00:00:00 [facility] Medicare A & B [id number] 2016 00:00:00 [facility] Problems Condition Name Condition Details Condition Category Status Onset Date Resolution Date Last Treatment Date Treating Clinician Comments Source M25.551 - PAIN IN RIGHT HIP M25.552 - PA M25.551 - PAIN IN RIGHT HIP M25.552 - PA Active 02/14/2019 DARIUSZ THURSTON Rober Diagnosis Active 2019-02-14 00:01:00 2019-02-14 15:04:00 Javier Nunn J44.9 J44. 9 Active 01/10/2017 DARIUSZ Mosley Diagnosis Active 2017-01-10 00:00:00 2017-01-18 13:00:00 [facility] SOB SOB Active 04/22/2015 [facility] Diagnosis Active 2015-04-22 00:00:00 2015-04-22 13:35:00 M [facility] Anxiety disorder (disorder) An xiety disorder (disorder) Active 12/23/2014 Problem 02/17/2019 Data migrated from [employer] on 03/29/15. 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 Originally documented as Anxiety disorder due to medical condition. Birdie Gaxiola BERTRAND [facility] Dimitri Problem Active 2014-12-23 0 0:00:00 2019-02-17 00:08:40 [facility] Generalized anxiety disorder (disorder) Generalized anxiety disorder (disorder) Active 12/23/2014 Problem 02/17/2019 Data migrated from [employer] on 03/29/15. Originally documented as Generalized anxiety disorder. 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 She dramatically improved but has chronic pain and PTSD like residual sensitive to GBP and amitriptyline the latter of which we were able to taper off. Originally documented as Injury of femoral nerve. 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 The norco use is too high and needs to be reduced. x Originally documented as Toxic encephalopathy. Birdie Gaxiola BERTRAND [facility] Problem Active 2014-12-23 00:00:00 2019-02-17 00:08:40 [facility] Restless legs (disorder) Rest less legs (disorder) Active 12/23/2014 Problem 02/17/2019 Data migrated from [employer] on 03/29/15. The patient has had a [...] recent blood loss. The patient is overusing [place] and this is leading to some toxic encephalopathy. Originally documented as RLS (restless legs syndrome). Birdie Gaxiola BERTRAND [facility] Problem Acti ve 2014-12-23 00:00:00 2019-02-17 00:08:40 M padmini Nunn Final: Abnormality of Gait Fin al: Abnormality of Gait 12/12/2014 [facility] Rober Problem 2014-12-12 01:59:23 [facility] Final: Stiffness of Joint, Not Elsewhere Classified, I nvolving Lower Leg Final: Stiffness of Joint, Not Elsewhere Classified, Involving Lower Leg 12/12/2014 [facility] Rober Problem 2014-12-12 01:59:23 [facility] Final: Aftercare Following Joint Replacement Final: Aftercare Following Joint Replacement 12/12/2014 [facility] [place] Problem 2014-12-12 01:59:23 [facility] Final: Knee Joint Replaced by Other Means Final: Knee Joint Replaced by Other Means 12/12/2014 [facility] Rober Problem 2014-12-12 01:59:23 [facility] [address] Hypertensive disorder, systemic arterial (disorder) Hypertensive disorder, systemic arterial (disorder) Resolved Problem 02/17/2019 [facility]ola [facility] Problem Resolved 2019-02-17 00:08:40 Leelee Nunn Pain in right knee Pain in right knee Active Problem 08/21/2017 Isael Becerra Problem Active 2017-08-21 02:49:59 [facility] [place] Pain in left knee Pain in left knee Active Problem 08/21/2017 Isael Becerra Problem Active 2017-08-21 02:49:59 [facility] [place] Other snf (current) drug therapy 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 Active Problem 08/21/2017 Isael Becerra Problem Ac tive 2017-08-21 02:49:59 [facility] Spasm of muscle Spas m of muscle Active Problem 08/21/2017 Isael Taoer Problem Active 2017-08-21 02:49:59 [facility] Chronic pain syndrome Wax Cutter fidel pain syndrome Active Problem 08/21/2017 Isael Becerra Problem Active 2017-08-21 02:49:59 [facility] Complex regional pain syndrome I of left lower limb Complex regional pain syndrome I of left lower limb Active Problem 08/21/2017 Isael Taoer Problem Active 2017-08-21 02:49:59 [facility] Myofascial pain Myof ascial pain Active Problem 08/21/2017 Isael Taoer Problem Active 2017-08-21 02:49:59 [facility] Right shoulder pain, unspecified chronicity Right shoulder pain, unspecified chronicity Active Diagnosis 03/09/2017 Isael Becerra Diagnosis Active 2017-03-09 03:46:11 [facility] Chronic pain syndrome Wax Cutter fidel pain syndrome Active Problem 12/05/2016 Isael Becerra Problem Active 2016-12-05 02:46:35 [facility] Long-term (current) use of other medications - High Ri Long-term (current) use of other medications - High Risk Active Problem 12/05/2016 Isael Becerra Problem Active 2016-12-05 02:46:35 [facility] Pain in joint, lower leg Pain in joint, lower leg Active Problem 12/05/2016 Isael Becerra Problem Active 2016-12-05 02 :46:35 [facility] RT KNEE RT K NEE Active [facility] [place] Diagnosis Active 2014-09-01 12:07:00 [facility] TKR TKR Active [facility] [place] Diagnosis Active 2015-01-11 16:42:00 [facility] CHRONIC OBSTRUCTIVE PULMONARY DISEASE, U CHRONIC OBSTRUCTIVE PULMONARY DISEASE, U Active [facility] Diagnosis Active 2017-01-18 13:00:00 [facility] Discharge Diagnosis: Disc harge Diagnosis: 04/22/2015 04/25/2015 [facility] Problem 2015-04-22 06:00:00 2015-04-25 05:5 4:04 2015-04-25 05:54:04 [facility] Allergies, Adverse Reactions, Alerts Allergy Name Allergy Type Status Severity Reaction(s) Onset Date Inacti ve Date Treating Clinician Comments Source No Known Allergies DA Active U 2018-04-27 00:00:00 [facility] Partha Chavis Active Info Not Available 2017-03-07 00:00:00 [facility] No Known Allergies DA Active U 2010-05-20 00:00:00 [facility] No Known Medication Allergies No Known Medication Allergies Active [facility] Social History Social Habit Start Date Stop Date Quantity Comments Source TobaccoUse: 2016-04-13 00:00:00 2016-04-13 00:00:00 [facility] Social History 2014-12-09 15:06:00 2014-12-09 15:06:00 [facility] Smoking Status Start Date Stop Date Source Social History 2015-04-22 15:48:29 2015-04-22 15:48:29 [facility] Medications Ordered Medication Name Filled Medication Name Start Date Stop Da te Current Medication? Ordering Clinician Indication Dosage Frequency Signature (SIG) Comments Components Source Metoprolol Succinate ER 2017-03-09 03:46:11 Yes [place] Dayanna 1 tablet [facility] Furosemide 2017-03-09 03:46:11 Yes [place] Dayanna 1 tablet [facility] Estradiol 2017-03-09 03:46:11 Yes [place] Dayanna 1 t ablet [facility] Levothyroxine Sodium 2017-03-09 03:46:11 Yes [place] Dayanna 1 tablet on an empty stomach in the morning [facility] Lisinopril 2017-03-09 03:46:11 Yes [place] Dayanna no t defined [facility] Alprazolam 2017-03-09 03:46:11 Yes Guido Dayanna no t defined [facility] Atorvastatin Calcium 2017-03-09 03:46:11 Yes Guido Dayanna 1 tablet [facility] Progesterone Micronized 2017-03-09 03:46:11 Yes [place] Ez simone 1 capsule at bedtime [facility] Lortab 2017-03-09 03:46:11 Yes [place] Dayanna 1 tabl et as needed [facility] Hydrocodone-Acetaminophen 2017-03-09 03:46:11 Yes [place] M unshi 1 tablet [facility] Fluoxetine HCl 2017-03-09 03:46:11 Yes [place] Dayanna not defined [facility] Levocetirizine Dihydrochloride 2016-12-11 00:00:00 Yes O abdirahman Dayanna 1 tablet in the evening [facility] Hydrocodone-Acetaminophen 2016-12-05 02:46:35 Yes [place] M unshi 1 tablet [facility] Lisinopril 2016-12-05 02:46:35 Yes Guido Dayanna no t defined [facility] Atorvastatin Calcium 2016-12-05 02:46:35 Yes Guido Dayanna 1 tablet [facility] Progesterone Micronized 2016-12-05 02:46:35 Yes [place] Ez simone 1 capsule at bedtime [facility] Alprazolam 2016-12-05 02:46:35 Yes Guido Dayanna no t defined [facility] Fluoxetine HCl 2016-12-05 02:46:35 Yes [place] Dayanna not defined [facility] Estradiol 2016-12-05 02:46:35 Yes Guido Dayanna 1 t ablet [facility] Levothyroxine Sodium 2016-12-05 02:46:35 Yes Guido Dayanna 1 tablet on an empty stomach in the morning [facility] Metoprolol Succinate ER 2016-12-05 02:46:35 Yes [place] Dayanna 1 tablet [facility] Lortab 2016-12-05 02:46:35 Yes [place] Dayanna 1 tabl et as needed [facility] Furosemide 2016-12-05 02:46:35 Yes [place] Dayanna 1 tablet [facility] Premarin 2016-08-10 02:46:09 Yes [place] Dayanna not defined [facility] Potassium Chloride ER 2016-08-10 02:46:09 Yes Guido Munsh i 1 capsule with food [facility] Levocetirizine Dihydrochloride 2016-08-10 02:46:09 Yes O abdirahman Dayanna 1 tablet in the evening [facility] Lortab 2016-07-10 00:00:00 Yes [place] Dayanna 1 tabl et as needed [facility] [place] 2016-05-13 00:00:00 Yes Guido Dayanna 1 table t as needed [facility] Gabapentin 2016-04-14 03:52:12 Yes [place] Dayanna Un known [facility] Butrans 2016-04-13 00:00:00 No [place] Dayanna 1 pat ch to skin [facility] predniSONE 20 mg oral tablet 2015-04-22 18:22:00 Yes 40 mg = 2 tab, PO, Daily, X 5 day, # 10 tab, 0 Refill(s) [facility] 200 ACTUAT Albuterol 0.09 MG/ACTUAT Metered Dose Inhaler 2015-04-22 18:22:00 Yes 2 puff, INHALATION, Q4H, PRN for wheezing, # 9 gm, 0 Refill(s) [facility] Atorvastatin Calcium 20 Mg Tablet Atorvastatin Calcium 20 Mg Tablet Yes 20 Bedtime [facility] Estradiol 1 Mg Tab Estradiol 1 Mg Tab Yes .5 Da lico [facility] Furosemide 40 Mg Tablet Furosemide 40 Mg Tablet Yes 80 Twice A Day [facility] Lisinopril 10 Mg Tablet Lisinopril 10 Mg Tablet Yes 20 Daily [facility] Metoprolol Succinate 50 Mg Tab.er.24h Metoprolol Succinate 50 Mg Ta b.er.24h Yes 50 Daily [facility] Torrance-3 Fatty Acids (Torrance-3) 1,000 Mg Capsule [place]-3 Fatty Acids ([place]rance-3) 1,000 Mg Capsule Yes [facility] Potassium Chloride 10 Meq Tab.er.prt Potassium Chloride 10 Meq Tab. er.prt Yes 10 [facility] Progesterone,Micronized (Progesterone) 200 Mg Capsule Progesterone,Micronized (Progesterone) 200 Mg Capsule Yes [facility] Thyroxine L Thyroxine L Yes 100 C [facility] Cholecalciferol (Vitamin D3) (Vitamin D) 5,000 Unit Ta [place]let, Cholecalciferol (Vitamin D3) (Vitamin D) 5,000 Unit Tablet, 2017-08-28 00:00:00 No [facility] Fluoxetine Hcl (Prozac) 20 Mg Capsule, 20 Mg Oral Fluo xetine Hcl (Prozac) 20 Mg Capsule, 20 Mg Oral 2017-08-28 00:00:00 No 20 Brianna y [facility] Albuterol Sulfate (Proair Hfa Inhaler*) 8.5 Gm Inh, Al buterol Sulfate (Proair Hfa Inhaler*) 8.5 Gm Inh, 2017-08-27 00:00:00 No As Needed [facility] Alprazolam (Xanax*) 1 Mg Tablet, 1 Mg Oral Alprazolam (Xanax*) 1 Mg Tablet, 1 Mg Oral 2017-08-27 00:00:00 No 1 As Needed [facility] Estrogens,Conjugated (Premarin) 0.625 Mg Tablet, 0.625 Mg Oral Estrogens,Conjugated (Premarin) 0.625 Mg Tablet, 0.625 Mg Oral 2017-08-27 00:00:00 No .625 Daily [facility] Hydrocodone Bit/Acetaminophen ([place] 7.5-325 Tablet) 1 Each Tablet, 7.5 Mg Oral Hydrocodone Bit/Acetaminophen ([place] 7.5-325 Tablet) 1 Each Tablet, 7.5 Mg Oral 2017-08-27 00:00:00 No 7.5 Three Times A Day as needed for Pain [facility] Lisinopril (Prinavil / Zestril) 20 Mg Tablet, 20 Mg Or al Lisinopril (Prinavil / Zestril) 20 Mg Tablet, 20 Mg Oral 2017-08-27 00:00:00 No 20 Daily [facility] Prednisone 20 Mg Tab, 20 Mg Oral Prednisone 20 Mg Tab, 20 Mg Ora l 2017-08-27 00:00:00 No 20 Daily [facility] Triamterene , Triamterene , 2017-08-27 00:00:00 No Daily [facility] Atenolol 100 Mg Tablet, 100 Mg Oral Atenolol 100 Mg Tablet, 100 Mg Oral 2016-02-29 00:00:00 No 100 Daily [facility] Amoxicillin 875 Mg Tablet, 875 Mg Oral Amoxicillin 875 Mg Tablet , 875 Mg Oral 2016-02-23 00:00:00 No 875 Twice A Day [facility] Guaifenesin/Codeine Phosphate (Guaiatussin Ac Liquid) 118 Ml Liquid, Guaifenesin/Codeine Phosphate (Guaiatussin Ac Liquid) 118 Ml Liquid, 2016-02-23 00:00:00 No [facility] Multivitamin , Multivitamin , 2016-02-23 00:00:00 No Daily [facility] Salmeterol Xinaf/Fluticasone (Advair 250/50) 1 Ea Disk , 1 Ea Inhalation Salmeterol Xinaf/Fluticasone (Advair 250/50) 1 Ea Disk, 1 Ea Inhalation 2016-02-23 00:00:00 No 1 [facility] Erin Khan , 2016-02-23 00:00:00 No As Needed [facility] Vital Signs Vital Name Observation Time Observation Value Comments Source Weight 2017-03-07 16:00:00 [facility] Height 2017-03-07 16:00:00 [facility] Temperature Oral (F) 2017-03-07 16:00:00 97.6 F [facility] Heart Rate 2017-03-07 16:00:00 [facility] Diastolic (mm Hg) 2017-03-07 16:00:00 [facility] Systolic (mm Hg) 2017-03-07 16:00:00 Shubham xochitl Simonsann Weight 2017-02-05 16:30:00 [facility] [place] Height 2017-02-05 16:30:00 [facility] Temperature Oral (F) 2017-02-05 16:30:00 97 F [facility] Heart Rate 2017-02-05 16:30:00 [facility] Diastolic (mm Hg) 2017-02-05 16:30:00 [facility] [place] Systolic (mm Hg) 2017-02-05 16:30:00 Shubham xochitl Simonsann Weight 2016-12-04 13:45:00 [facility] Height 2016-12-04 13:45:00 [facility] Temperature Oral (F) 2016-12-04 13:45:00 98.3 F [facility] Heart Rate 2016-12-04 13:45:00 [facility] Diastolic (mm Hg) 2016-12-04 13:45:00 [facility] Systolic (mm Hg) 2016-12-04 13:45:00 Shubham xochitl Simonsann Weight 2016-11-03 15:45:00 [facility] Height 2016-11-03 15:45:00 [facility] Temperature Oral (F) 2016-11-03 15:45:00 97.4 F [facility] Heart Rate 2016-11-03 15:45:00 [facility] Diastolic (mm Hg) 2016-11-03 15:45:00 [facility] Systolic (mm Hg) 2016-11-03 15:45:00 Sh[facility]ham [facility] [place] Weight 2016-08-09 14:30:00 [facility] Height 2016-08-09 14:30:00 [facility] Temperature Oral (F) 2016-08-09 14:30:00 96.1 F [facility] Heart Rate 2016-08-09 14:30:00 [facility] Diastolic (mm Hg) 2016-08-09 14:30:00 [facility] [place] Systolic (mm Hg) 2016-08-09 14:30:00 Shubham rial [place] Weight 2016-07-10 14:15:00 [facility] Height 2016-07-10 14:15:00 [facility] Temperature Oral (F) 2016-07-10 14:15:00 98.4 F [facility] Heart Rate 2016-07-10 14:15:00 [facility] Diastolic (mm Hg) 2016-07-10 14:15:00 [facility] Systolic (mm Hg) 2016-07-10 14:15:00 Shubham rial [place] Weight 2016-04-13 15:15:00 [facility] [place] Height 2016-04-13 15:15:00 [facility] Temperature Oral (F) 2016-04-13 15:15:00 96.6 F [facility] Diastolic (mm Hg) 2016-04-13 15:15:00 [facility] [place] Systolic (mm Hg) 2016-04-13 15:15:00 Sh[facility]ham [facility] [place] Systolic (mm Hg) 2015-04-22 18:51:00 Shubham rial [place] Diastolic (mm Hg) 2015-04-22 18:51:00 [facility] [place] Heart Rate 2015-04-22 18:51:00 [facility] Temperature Oral (F) 2015-04-22 18:51:00 99 F [facility] Height 2015-04-22 15:28:00 170.18 cm [facility] BMI Calculated 2015-04-22 15:28:00 [facility] [place] Weight 2015-04-22 15:28:00 [facility] Temperature Oral (F) 2015-04-22 15:28:00 98.5 F [facility] Respitory Rate 2015-04-22 15:28:00 [facility] [place] Heart Rate 2015-04-22 15:28:00 [facility] Systolic (mm Hg) 2015-04-22 15:28:00 Shubham riaallyssa Walsh Diastolic (mm Hg) 2015-04-22 15:28:00 [facility] [place] Procedures Procedure Date / Time Performed Performing Clinician Noman oneal Magnetic resonance imaging of brain without contrast 2017-12 00:00:00 AJIT ZHANG Javier [facility] EGD BIOPSY SINGLE/MULTIPLE 2017-08-28 00:00:00 LUZ MARINA NICOLAS [facility] DILATE ESOPHAGUS 1/MULT PASS 2017-08-28 00:00:00 LUZ MARINA NICOLAS [facility] COLONOSCOPY W/LESION REMOVAL 2017-08-28 00:00:00 LUZ MARINA NICOLAS [facility] Knee replacement<sup>1</sup> [facility] [place] Encounters Start Date/Time End Date/Time Encounter Type Admission Type [facility] Care Department Encounter ID Source 2019-02-14 14:52:00 2019-02-14 23:59:00 Outpatient Gwendolyn Dee MHHOIP MHHOIP [id number] 2018-08-20 15:06:06 2018-08-21 23:59:59 Outpatient MHMIS JATINDER MHMISCHER [id number] 2018-07-25 12:00:00 2018-07-25 23:59:59 Outpatient MarlysSteve MHMISCHER MHMISCHER [id number] 2018-04-26 13:04:00 2018-04-26 13:04:00 Registered Emergency Room [facility] [id number] [facility] 2018-01-10 13:33:00 2018-02-08 23:59:00 Discharged Recurring [facility] [id number] [facility] 2018-01-21 16:00:00 2018-01-21 16:00:00 Outpatient Steve Frankel MHMISCHER MHMISCHER [id number] 2017-12-24 13:01:00 2018-01-09 23:59:00 Discharged Recurring [facility] [id number] [facility] 2017-12-21 13:25:00 2017-12-21 13:25:00 Registered Clinic 3 AJIT ZHANG [facility] [id number] [facility] 2017-08-28 11:27:00 2017-08-28 11:27:00 Registered Surgical Day Care [facility] [id number] [facility] 2017-08-20 09:10:00 2017-08-20 09:10:00 [facility] [id number] Isael Becerra MD 2017-05-04 16:39:00 2017-05-04 16:39:00 [facility] [id number] Isael Becerra MD 2017-05-04 14:54:00 2017-05-04 14:54:00 [facility] [id number] Isael Becerra MD 2017-05-04 08:47:00 2017-05-04 08:47:00 Outpatient [facility] [id number] Isael Becerra MD 2017-05-04 08:41:00 2017-05-04 08:41:00 Outpatient [facility] [id number] Isael Becerra MD 2017-04-02 08:25:00 2017-04-02 08:25:00 Outpatient [facility] [id number] Isael Becerra MD 2017-03-07 10:00:00 2017-03-07 10:00:00 Outpatient [facility] [id number] Isael Becerra MD 2017-02-05 10:30:00 2017-02-05 10:30:00 Outpatient [facility] [id number] DARIUSZ Becerra MD 2017-01-18 12:52:00 2017-01-18 23:59:00 Outpatient Latha Raymundo [facility] [id number] 2016-12-04 08:45:00 2016-12-04 08:45:00 Outpatient [facility] [id number] Isael Becerra MD 2016-11-03 10:45:00 2016-11-03 10:45:00 Outpatient [facility] [id number] Isael Becerra MD 2016-08-09 09:30:00 2016-08-09 09:30:00 Outpatient [facility] [id number] Isael Becerra MD 2016-07-10 09:15:00 2016-07-10 09:15:00 Outpatient [facility] [id number] Isael Becerra MD 2016-05-30 13:10:00 2016-05-30 13:10:00 Outpatient [facility] [id number] Isael Becerra MD 2016-05-30 13:08:00 2016-05-30 13:08:00 Outpatient [facility] [id number] Isael Becerra MD 2016-04-13 09:15:00 2016-04-13 09:15:00 Outpatient MD Franck Fong MD [id number] DARIUSZ Becerra MD 2015-04-22 09:17:00 2015-04-22 12:53:00 Outpatient Eitan Karin [facility] [id number] 2014-11-17 16:00:00 2014-12-09 10:06:00 Outpatient Gorge Evangelista [id number] 2014-09-01 11:47:00 2014-09-30 23:59:00 Outpatient Gorge Evangelista [id number] Results Test Description Test Time Test Comments Results Result Comments Source BASIC METABOLIC PANEL 2018-05-09 05:37:00 Test Item SODIUM (test code = NA) 145 mmol/L 136-145 N POTASSIUM (test code = K) 4.3 mmol/L 3.5-5.1 N CHLORIDE (test code = CL) 115.0 mmol/L 98-107 H CARBON DIOXIDE (test code = CO2) 24.0 mmol/L 21-32 N ANION GAP (test code = GAP) 10.3 10-20 N GLUCOSE (test code = GLU) 85 mg/dL 74-106 N BLOOD UREA NITROGEN (test code = BUN) 14 mg/dL 7-18 N GLOMERULAR FILTRATION RATE (test code = GFR) 41 mL/min >=60 Estimated GFR by using Modified MDRD formula.Chronic kidney disease is defined as either kidney damageor GFR <60 mL/min/1.73 m2 for >3 months. CREATININE (test code = CREAT) 1.30 mg/dL 0.55-1.02 H Note change in reference range due to change in reagent. BUN/CREATININE RATIO (test code = BUN/CREA) 11.0 10-20 N CALCIUM (test code = CA) 8.7 mg/dL 8.5-10.1 N BASIC METABOLIC [id number] 05:36:00* Test Item Value Reference Range Interpretation Comments SODIUM (test code = NA) 145 mmol/L 136-145 N POTASSIUM (test code = K) 4.3 mmol/L 3.5-5.1 N CHLORIDE (test code = CL) 115.0 mmol/L 98-107 H CARBON DIOXIDE (test code = CO2) mmol/L 21-32 ANION GAP (test code = GAP) 10-20 GLUCOSE (test code = GLU) mg/dL 74-106 BLOOD UREA NITROGEN (test code = BUN) mg/dL 7-18 GLOMERULAR FILTRATION RATE (test code = GFR) mL/min >=60 CREATININE (test code = CREAT) mg/dL 0.55-1.02 BUN/CREATININE RATIO (test code = BUN/CREA) 10-20 CALCIUM (test code = CA) mg/dL 8.5-10.1 BASIC METABOLIC [id number] 05:50:00* Test Item Value Reference Range Interpretation Comments SODIUM (test code = NA) 145 mmol/L 136-145 N POTASSIUM (test code = K) 4.7 mmol/L 3.5-5.1 N CHLORIDE (test code = CL) 114.0 mmol/L 98-107 H CARBON DIOXIDE (test code = CO2) 22.0 mmol/L 21-32 N ANION GAP (test code = GAP) 13.7 10-20 N GLUCOSE (test code = GLU) 80 mg/dL 74-106 N BLOOD UREA NITROGEN (test code = BUN) 13 mg/dL 7-18 N GLOMERULAR FILTRATION RATE (test code = GFR) 45 mL/min >=60 Estimated GFR by using Modified MDRD formula.Chronic kidney disease is defined as either kidney damageor GFR <60 mL/min/1.73 m2 for >3 months. CREATININE (test code = CREAT) 1.20 mg/dL 0.55-1.02 H Note change in reference range due to change in reagent. BUN/CREATININE RATIO (test code = BUN/CREA) 10.5 10-20 N CALCIUM (test code = CA) 8.2 mg/dL 8.5-10.1 L [id number] 05:50:00* Test Item Value Reference Range Interpretation Comments PHOSPHORUS (test code = PHOS) 3.0 mg/dL 2.5-4.9 N [id number] 05:50:00* Test Item Value Reference Range Interpretation Comments MAGNESIUM (test code = MAG) 2.1 mg/dL 1.8-2.4 N BASIC METABOLIC [id number] 05:45:00* Test Item Value Reference Range Interpretation Comments SODIUM (test code = NA) 145 mmol/L 136-145 N POTASSIUM (test code = K) 4.7 mmol/L 3.5-5.1 N CHLORIDE (test code = CL) 114.0 mmol/L 98-107 H CARBON DIOXIDE (test code = CO2) mmol/L 21-32 ANION GAP (test code = GAP) 10-20 GLUCOSE (test code = GLU) mg/dL 74-106 BLOOD UREA NITROGEN (test code = BUN) mg/dL 7-18 GLOMERULAR FILTRATION RATE (test code = GFR) mL/min >=60 CREATININE (test code = CREAT) mg/dL 0.55-1.02 BUN/CREATININE RATIO (test code = BUN/CREA) 10-20 CALCIUM (test code = CA) mg/dL 8.5-10.1 [id number] 05:45:00* Test Item Value Reference Range Interpretation Comments PHOSPHORUS (test code = PHOS) mg/dL 2.5-4.9 [id number] 05:45:00* Test Item Value Reference Range Interpretation Comments MAGNESIUM (test code = MAG) mg/dL 1.8-2.4 BASIC METABOLIC [id number] 08:26:00* Test Item Value Reference Range Interpretation Comments SODIUM (test code = NA) 146 mmol/L 136-145 H POTASSIUM (test code = K) 4.1 mmol/L 3.5-5.1 N CHLORIDE (test code = CL) 114.0 mmol/L 98-107 H CARBON DIOXIDE (test code = CO2) 27.0 mmol/L 21-32 N ANION GAP (test code = GAP) 9.1 10-20 L GLUCOSE (test code = GLU) 97 mg/dL 74-106 N BLOOD UREA NITROGEN (test code = BUN) 13 mg/dL 7-18 N GLOMERULAR FILTRATION RATE (test code = GFR) 38 mL/min >=60 Estimated GFR by using Modified MDRD formula.Chronic kidney disease is defined as either kidney damageor GFR <60 mL/min/1.73 m2 for >3 months. CREATININE (test code = CREAT) 1.40 mg/dL 0.55-1.02 H Note change in reference range due to change in reagent. BUN/CREATININE RATIO (test code = BUN/CREA) 9.4 10-20 L CALCIUM (test code = CA) 8.4 mg/dL 8.5-10.1 L [id number] 08:26:00* Test Item Value Reference Range Interpretation Comments PHOSPHORUS (test code = PHOS) 1.5 mg/dL 2.5-4.9 L [id number] 08:26:00* Test Item Value Reference Range Interpretation Comments MAGNESIUM (test code = MAG) 1.7 mg/dL 1.8-2.4 L BASIC METABOLIC [id number] 08:21:00* Test Item Value Reference Range Interpretation Comments SODIUM (test code = NA) 146 mmol/L 136-145 H POTASSIUM (test code = K) 4.1 mmol/L 3.5-5.1 N CHLORIDE (test code = CL) 114.0 mmol/L 98-107 H CARBON DIOXIDE (test code = CO2) mmol/L 21-32 ANION GAP (test code = GAP) 10-20 GLUCOSE (test code = GLU) mg/dL 74-106 BLOOD UREA NITROGEN (test code = BUN) mg/dL 7-18 GLOMERULAR FILTRATION RATE (test code = GFR) mL/min >=60 CREATININE (test code = CREAT) mg/dL 0.55-1.02 BUN/CREATININE RATIO (test code = BUN/CREA) 10-20 CALCIUM (test code = CA) mg/dL 8.5-10.1 [id number] 08:21:00* Test Item Value Reference Range Interpretation Comments PHOSPHORUS (test code = PHOS) mg/dL 2.5-4.9 [id number] 08:21:00* Test Item Value Reference Range Interpretation Comments MAGNESIUM (test code = MAG) mg/dL 1.8-2.4 CBC W/O [id number] 08:15:00* Test Item Value Reference Range Interpretation Comments WHITE BLOOD CELL (test code = WBC) 9.7 K/mm3 4.5-12.5 N RED BLOOD CELL (test code = RBC) 3.23 mill/mm3 3.7-5.2 L HEMOGLOBIN (test code = HGB) 10.1 gram/dL 11.5-15.5 L HEMATOCRIT (test code = HCT) 32.1 % 36.0-46.0 L MEAN CELL VOLUME (test code = MCV) 99.4 fL 80-98 H MEAN CELL HGB (test code = MCH) 31.3 picogram 27.0-33.0 N MEAN CELL HGB CONCETRATION (test code = MCHC) 31.5 gram/dL 33.0-36. 0 L RED CELL DISTRIBUTION WIDTH (test code = RDW) 13.5 % 11.6-16. 2 N PLATELET COUNT (test code = PLT) 208 K/mm3 150-450 N MEAN PLATELET VOLUME (test code = MPV) 10.7 fL 6.7-11.0 N BASIC METABOLIC [id number] 05:30:00* Test Item Value Reference Range Interpretation Comments SODIUM (test code = NA) 149 mmol/L 136-145 H POTASSIUM (test code = K) 4.2 mmol/L 3.5-5.1 N CHLORIDE (test code = CL) 118.0 mmol/L 98-107 H CARBON DIOXIDE (test code = CO2) 23.0 mmol/L 21-32 N ANION GAP (test code = GAP) 12.2 10-20 N GLUCOSE (test code = GLU) 118 mg/dL 74-106 H BLOOD UREA NITROGEN (test code = BUN) 20 mg/dL 7-18 H GLOMERULAR FILTRATION RATE (test code = GFR) 38 mL/min >=60 Estimated GFR by using Modified MDRD formula.Chronic kidney disease is defined as either kidney damageor GFR <60 mL/min/1.73 m2 for >3 months. CREATININE (test code = CREAT) 1.40 mg/dL 0.55-1.02 H Note change in reference range due to change in reagent. BUN/CREATININE RATIO (test code = BUN/CREA) 14.7 10-20 N CALCIUM (test code = CA) 8.6 mg/dL 8.5-10.1 N CBC W/O [id number] 05:04:00* Test Item Value Reference Range Interpretation Comments WHITE BLOOD CELL (test code = WBC) 8.3 K/mm3 4.5-12.5 N RED BLOOD CELL (test code = RBC) 3.19 mill/mm3 3.7-5.2 L HEMOGLOBIN (test code = HGB) 10.0 gram/dL 11.5-15.5 L HEMATOCRIT (test code = HCT) 30.9 % 36.0-46.0 L MEAN CELL VOLUME (test code = MCV) 96.9 fL 80-98 N MEAN CELL HGB (test code = MCH) 31.3 picogram 27.0-33.0 N MEAN CELL HGB CONCETRATION (test code = MCHC) 32.4 gram/dL 33.0-36. 0 L RED CELL DISTRIBUTION WIDTH (test code = RDW) 13.6 % 11.6-16. 2 N PLATELET COUNT (test code = PLT) 193 K/mm3 150-450 RESULT VERIFIED BY REPEAT ANALYSIS MEAN PLATELET VOLUME (test code = MPV) 10.4 fL 6.7-11.0 N [id number] 13:05:00* Test Item Value Reference Range Interpretation Comments CORTISOL (test code = CORTR) 35.38 mcg/dL 3.44-22.45 H Please Note Change in REFERENCE RANGE BASIC METABOLIC [id number] 07:00:00* Test Item Value Reference Range Interpretation Comments SODIUM (test code = NA) 149 mmol/L 136-145 H POTASSIUM (test code = K) 4.5 mmol/L 3.5-5.1 N CHLORIDE (test code = CL) 117.0 mmol/L 98-107 H CARBON DIOXIDE (test code = CO2) 23.0 mmol/L 21-32 N ANION GAP (test code = GAP) 13.5 10-20 N GLUCOSE (test code = GLU) 113 mg/dL 74-106 H BLOOD UREA NITROGEN (test code = BUN) 29 mg/dL 7-18 H RESULT VERIFIED BY REPEAT ANALYSIS GLOMERULAR FILTRATION RATE (test code = GFR) 50 mL/min >=60 Estimated GFR by using Modified MDRD formula.Chronic kidney disease is defined as either kidney damageor GFR <60 mL/min/1.73 m2 for >3 months. CREATININE (test code = CREAT) 1.10 mg/dL 0.55-1.02 H Note change in reference range due to change in reagent. BUN/CREATININE RATIO (test code = BUN/CREA) 26.4 10-20 H CALCIUM (test code = CA) 8.7 mg/dL 8.5-10.1 N [id number] 07:00:00* Test Item Value Reference Range Interpretation Comments PHOSPHORUS (test code = PHOS) 2.1 mg/dL 2.5-4.9 L [id number] 07:00:00* Test Item Value Reference Range Interpretation Comments MAGNESIUM (test code = MAG) 2.0 mg/dL 1.8-2.4 N BASIC METABOLIC [id number] 06:53:00* Test Item Value Reference Range Interpretation Comments SODIUM (test code = NA) 149 mmol/L 136-145 H POTASSIUM (test code = K) 4.5 mmol/L 3.5-5.1 N CHLORIDE (test code = CL) 117.0 mmol/L 98-107 H CARBON DIOXIDE (test code = CO2) mmol/L 21-32 ANION GAP (test code = GAP) 10-20 GLUCOSE (test code = GLU) mg/dL 74-106 BLOOD UREA NITROGEN (test code = BUN) mg/dL 7-18 GLOMERULAR FILTRATION RATE (test code = GFR) mL/min >=60 CREATININE (test code = CREAT) mg/dL 0.55-1.02 BUN/CREATININE RATIO (test code = BUN/CREA) 10-20 CALCIUM (test code = CA) mg/dL 8.5-10.1 [id number] 06:53:00* Test Item Value Reference Range Interpretation Comments PHOSPHORUS (test code = PHOS) mg/dL 2.5-4.9 [id number] 06:53:00* Test Item Value Reference Range Interpretation Comments MAGNESIUM (test code = MAG) mg/dL 1.8-2.4 BASIC METABOLIC [id number] 13:59:00* Test Item Value Reference Range Interpretation Comments SODIUM (test code = NA) 146 mmol/L 136-145 H POTASSIUM (test code = K) 4.5 mmol/L 3.5-5.1 N CHLORIDE (test code = CL) 117.0 mmol/L 98-107 H CARBON DIOXIDE (test code = CO2) 22.0 mmol/L 21-32 N ANION GAP (test code = GAP) 11.5 10-20 N GLUCOSE (test code = GLU) 121 mg/dL 74-106 H BLOOD UREA NITROGEN (test code = BUN) 45 mg/dL 7-18 H GLOMERULAR FILTRATION RATE (test code = GFR) 41 mL/min >=60 Estimated GFR by using Modified MDRD formula.Chronic kidney disease is defined as either kidney damageor GFR <60 mL/min/1.73 m2 for >3 months. CREATININE (test code = CREAT) 1.30 mg/dL 0.55-1.02 H Note change in reference range due to change in reagent. BUN/CREATININE RATIO (test code = BUN/CREA) 34.4 10-20 H CALCIUM (test code = CA) 8.2 mg/dL 8.5-10.1 L BASIC METABOLIC [id number] 13:58:00* Test Item Value Reference Range Interpretation Comments SODIUM (test code = NA) 146 mmol/L 136-145 H POTASSIUM (test code = K) 4.5 mmol/L 3.5-5.1 N CHLORIDE (test code = CL) 117.0 mmol/L 98-107 H CARBON DIOXIDE (test code = CO2) mmol/L 21-32 ANION GAP (test code = GAP) 10-20 GLUCOSE (test code = GLU) mg/dL 74-106 BLOOD UREA NITROGEN (test code = BUN) mg/dL 7-18 GLOMERULAR FILTRATION RATE (test code = GFR) mL/min >=60 CREATININE (test code = CREAT) mg/dL 0.55-1.02 BUN/CREATININE RATIO (test code = BUN/CREA) 10-20 CALCIUM (test code = CA) mg/dL 8.5-10.1 - XR CHEST 1 [id number] 13:40:00 FAX: Billie Antunez MD [phone] [place]: St: ADM FAX: Isaiah Michelle MD [phone] FAX: Erasto Waldron MD [phone] Name: EUGENIO GREEN [facility] : 1950 Age/S: 68/F [address] [facility] Unit #: [id number] Loc: V.3018 [place] [address] Phys: Isaiah Deras MD Acct: [id number] Dis Date: Status: ADM IN PH ONE #: [phone] Exam Date: 05/04/2018 1310 FAX #: [phone] Reason: dyspnea EXAMS: CPT CODE: [id number] XR CHEST 1 V [id number] EXAM: Chest x- ray, one view; INFORMATION: Dyspnea, hypertension; IMPRESSION: 1. No acute cardiothoracic abnormalities. 2. No deepti nge compared with the recent study from May 02, 2018, showing mild cardiomegaly calcifications. at 1340 Reported and signed by: Rom Membreno M.D. CC: Billie Ocampo MD; Isaiah Deras MD; Erasto Clark MD Tech nologist: SHARI BAR RT(R) Trnscrd Date/Ti me/By: 05/04/2018 (0486) : By: JoanneGRW Orig Print D/T: S: 05/05/2018 (9969) PAGE 1 Signed Report CBC W/AUTO [id number] 08:49:00* Test Item Value Reference Range Interpretation Comments WHITE BLOOD CELL (test code = WBC) 6.3 K/mm3 4.5-12.5 N RED BLOOD CELL (test code = RBC) 3.36 mill/mm3 3.7-5.2 L HEMOGLOBIN (test code = HGB) 10.5 gram/dL 11.5-15.5 L HEMATOCRIT (test code = HCT) 33.1 % 36.0-46.0 L MEAN CELL VOLUME (test code = MCV) 98.5 fL 80-98 H MEAN CELL HGB (test code = MCH) 31.3 picogram 27.0-33.0 N MEAN CELL HGB CONCETRATION (test code = MCHC) 31.7 gram/dL 33.0-36. 0 L RED CELL DISTRIBUTION WIDTH (test code = RDW) 14.1 % 11.6-16. 2 N RED CELL DISTRIBUTION WIDTH SD (test code = RDW-SD) 51.0 fL 37 .0-51.0 N PLATELET COUNT (test code = PLT) 146 K/mm3 150-450 L MEAN PLATELET VOLUME (test code = MPV) 11.6 fL 6.7-11.0 H NEUTROPHIL % (test code = NT%) 43.5 % 39.0-69.0 N IMMATURE GRANULOCYTE % (test code = IG%) 1.1 % 0.0-5.0 N LYMPHOCYTE % (test code = LY%) 37.7 % 25.0-55.0 N MONOCYTE % (test code = MO%) 16.6 % 0.0-10.0 H EOSINOPHIL % (test code = EO%) 0.8 % 0.0-5.0 N BASOPHIL % (test code = BA%) 0.3 % 0.0-1.0 N NUCLEATED RBC % (test code = NRBC%) 0.0 % 0-0 N NEUTROPHIL # (test code = NT#) 2.74 K/mm3 1.8-7.7 N IMMATURE GRANULOCYTE # (test code = IG#) 0.07 x10 3/uL 0-0.03 H LYMPHOCYTE # (test code = LY#) 2.38 K/mm3 1.0-5.0 N MONOCYTE # (test code = MO#) 1.05 K/mm3 0-0.8 H EOSINOPHIL # (test code = EO#) 0.05 K/mm3 0.0-0.5 N BASOPHIL # (test code = BA#) 0.02 K/mm3 0.0-0.2 N NUCLEATED RBC # (test code = NRBC#) 0.00 K/mm3 0.0-0.1 N MANUAL DIFF REQUIRED (test code = MDIFF) NO COMPREHENSIVE METABOLIC [id number] 05:31:00* Test Item Value Reference Range Interpretation Comments SODIUM (test code = NA) 147 mmol/L 136-145 H RESU LT VERIFIED BY REPEAT ANALYSIS POTASSIUM (test code = K) 4.9 mmol/L 3.5-5.1 N CHLORIDE (test code = CL) 114.0 mmol/L 98-107 H CARBON DIOXIDE (test code = CO2) 23.0 mmol/L 21-32 N ANION GAP (test code = GAP) 14.9 10-20 N GLUCOSE (test code = GLU) 78 mg/dL 74-106 N BLOOD UREA NITROGEN (test code = BUN) 53 mg/dL 7-18 H RESULT VERIFIED BY REPEAT ANALYSIS GLOMERULAR FILTRATION RATE (test code = GFR) 30 mL/min >=60 Estimated GFR by using Modified MDRD formula.Chronic kidney disease is defined as either kidney damageor GFR <60 mL/min/1.73 m2 for >3 months. CREATININE (test code = CREAT) 1.70 mg/dL 0.55-1.02 H Note change in reference range due to change in reagent. BUN/CREATININE RATIO (test code = BUN/CREA) 30.5 10-20 H TOTAL PROTEIN (test code = PROT) 5.2 gram/dL 6.4-8.2 L ALBUMIN (test code = ALB) 2.5 g/dL 3.4-5.0 L GLOBULIN (test code = GLOB) 2.7 gram/dL 2.7-4.2 N ALBUMIN/GLOBULIN RATIO (test code = A/G) 0.9 0.75-1.50 N CALCIUM (test code = CA) 7.5 mg/dL 8.5-10.1 L BILIRUBIN TOTAL (test code = BILT) 0.20 mg/dL 0.0-1.0 N SGOT/AST (test code = AST) 43 IUnit/L 15-37 H SGPT/ALT (test code = ALT) 21 IUnit/L 12-78 N ALKALINE PHOSPHATASE TOTAL (test code = ALKP) 53 IUnit/L 45-117 N Note change in reference range due to change in reagent. COMPREHENSIVE METABOLIC [id number] 05:30:00* Test Item Value Reference Range Interpretation Comments SODIUM (test code = NA) 147 mmol/L 136-145 H RESU LT VERIFIED BY REPEAT ANALYSIS POTASSIUM (test code = K) 4.9 mmol/L 3.5-5.1 N CHLORIDE (test code = CL) 114.0 mmol/L 98-107 H CARBON DIOXIDE (test code = CO2) 23.0 mmol/L 21-32 N ANION GAP (test code = GAP) 14.9 10-20 N GLUCOSE (test code = GLU) 78 mg/dL 74-106 N BLOOD UREA NITROGEN (test code = BUN) 53 mg/dL 7-18 H RESULT VERIFIED BY REPEAT ANALYSIS GLOMERULAR FILTRATION RATE (test code = GFR) mL/min >=60 CREATININE (test code = CREAT) mg/dL 0.55-1.02 BUN/CREATININE RATIO (test code = BUN/CREA) 10-20 TOTAL PROTEIN (test code = PROT) gram/dL 6.4-8.2 ALBUMIN (test code = ALB) 2.5 g/dL 3.4-5.0 L GLOBULIN (test code = GLOB) gram/dL 2.7-4.2 ALBUMIN/GLOBULIN RATIO (test code = A/G) 0.75-1.50 CALCIUM (test code = CA) 7.5 mg/dL 8.5-10.1 L BILIRUBIN TOTAL (test code = BILT) mg/dL 0.0-1.0 SGOT/AST (test code = AST) IUnit/L 15-37 SGPT/ALT (test code = ALT) IUnit/L 12-78 ALKALINE PHOSPHATASE TOTAL (test code = ALKP) IUnit/L 45-117 [id number] 05:16:00* Test Item Value Reference Range Interpretation Comments PHOSPHORUS (test code = PHOS) 3.3 mg/dL 2.5-4.9 N [id number] 05:16:00* Test Item Value Reference Range Interpretation Comments MAGNESIUM (test code = MAG) 2.3 mg/dL 1.8-2.4 N [id number] 05:12:00* Test Item Value Reference Range Interpretation Comments PHOSPHORUS (test code = PHOS) mg/dL 2.5-4.9 [id number] 05:12:00* Test Item Value Reference Range Interpretation Comments MAGNESIUM (test code = MAG) 2.3 mg/dL 1.8-2.4 N BASIC METABOLIC [id number] 16:17:00* Test Item Value Reference Range Interpretation Comments SODIUM (test code = NA) 137 mmol/L 136-145 N POTASSIUM (test code = K) 5.6 mmol/L 3.5-5.1 H CHLORIDE (test code = CL) 110.0 mmol/L 98-107 H CARBON DIOXIDE (test code = CO2) 16.0 mmol/L 21-32 L ANION GAP (test code = GAP) 16.6 10-20 N GLUCOSE (test code = GLU) 86 mg/dL 74-106 N BLOOD UREA NITROGEN (test code = BUN) 75 mg/dL 7-18 H GLOMERULAR FILTRATION RATE (test code = GFR) 14 mL/min >=60 Estimated GFR by using Modified MDRD formula.Chronic kidney disease is defined as either kidney damageor GFR <60 mL/min/1.73 m2 for >3 months. CREATININE (test code = CREAT) 3.30 mg/dL 0.55-1.02 H Note change in reference range due to change in reagent. BUN/CREATININE RATIO (test code = BUN/CREA) 22.7 10-20 H CALCIUM (test code = CA) 8.0 mg/dL 8.5-10.1 L THYROID PROFILE [id number] 16:17:00* Test Item Value Reference Range Interpretation Comments T3 UPTAKE (test code = T3UP) 33.0 % 30.0-40.0 N T4 (THYROXINE) (test code = T4) 6.8 ug/dL 4.5-13.9 N T7 (FREE THYROXINE INDEX) (test code = T7) 2.24 FTI 1.3-5.1 N THYROID STIMULATING HORMONE (test code = TSH) 0.597 uIU/mL 0.36-3.7 4 N TSH REFERENCE RANGES: EUTHYROID: 0.35 - 4.3 mIU/mL HYPO : > 5.5 mIU/mL HYPER : < 0.35 mIU/mL T4 [id number] 16:17:00* Test Item Value Reference Range Interpretation Comments T4 FREE (test code = T4F) 0.80 ng/dL 0.76-1.46 N [id number] 16:07:00* Test Item Value Reference Range Interpretation Comments AMMONIA (test code = AMM) 22 umol/L 11-32 N BASIC METABOLIC [id number] 16:01:00* Test Item Value Reference Range Interpretation Comments SODIUM (test code = NA) 137 mmol/L 136-145 N POTASSIUM (test code = K) 5.6 mmol/L 3.5-5.1 H CHLORIDE (test code = CL) 110.0 mmol/L 98-107 H CARBON DIOXIDE (test code = CO2) mmol/L 21-32 ANION GAP (test code = GAP) 10-20 GLUCOSE (test code = GLU) mg/dL 74-106 BLOOD UREA NITROGEN (test code = BUN) mg/dL 7-18 GLOMERULAR FILTRATION RATE (test code = GFR) mL/min >=60 CREATININE (test code = CREAT) mg/dL 0.55-1.02 BUN/CREATININE RATIO (test code = BUN/CREA) 10-20 CALCIUM (test code = CA) mg/dL 8.5-10.1 THYROID PROFILE [id number] 16:01:00* Test Item Value Reference Range Interpretation Comments T3 UPTAKE (test code = T3UP) % 30.0-40.0 T4 (THYROXINE) (test code = T4) ug/dL 4.5-13.9 T7 (FREE THYROXINE INDEX) (test code = T7) FTI 1.3-5.1 THYROID STIMULATING HORMONE (test code = TSH) uIU/mL 0.36-3.7 4 T4 [id number] 16:01:00* Test Item Value Reference Range Interpretation Comments T4 FREE (test code = T4F) ng/dL 0.76-1.46 - CT HEAD/BRAIN W/O [id number] 15:05:00 Name: EUGENIO GREEN [facility] : 1950 Age/S: 68 / F [address] [facility] Unit #: [id number] Loc: [place] [address] Phys: Isaiah Deras MD Acct: [id number] Dis Date: Status: ADM IN PHONE #: [phone] Exam Date: 05/03/2018 1500 FAX #: [phone] Reason: ALCOHOL WITHDRAW/FOLLOW UP EXAMS: CPT CODE: [id number] CT HEAD/BRAIN W/O CONT [id number] REASON FOR EXAM: ALCOHOL WITHDRAW/FOLLOW UP EXAM ORDER DATE: 05/03/2018 2:42 PM Ordering M.D.: Isaiah Deras MD PROCEDURE: - CT HEAD/BRAIN W/O CONT COMPARISON: 05/03/2018 at 5:53 AM FINDINGS: CT images of the brain were obtained without IV contrast. Dose reduction techniques were applied. BI-RADS white matter The hoang-white matter delineation is unremarkable. The ventricles, cisterns, and sulci are unremarkable. There is no evidence of hemorrhage, mass, mass effect. There is no evidence of acute or old infarct. The calvarium is intact. IMPRESSION: Unremarkable brain. at 1505 Reported and signed by: Dae Davis M.D. CC: Billie Ocampo MD; Isaiah Deras MD; Erasto Clark MD Technologist:Heidy Hebert RT(R) CTDI: DLP: Trnscb Date/Time: 05/03/2018 (1500) Kayleen Orig Print D/T: S: 05/03/2018 (1501) CTDI: DLP: PAGE 1 Signed Report URINALYSIS COMPLETE 2018-05-03 09:31:00* Test Item Value Reference Range Interpretation Comments UA COLOR (test code = COLU) YELLOW YELLOW UA APPEARANCE (test code = APPU) Cloudy CLEAR A UA GLUCOSE DIPSTICK (test code = DGLUU) NEGATIVE mg/dL NEGATIVE UA BILIRUBIN DIPSTICK (test code = BILU) NEGATIVE mg/dL NEGATIVE UA KETONE DIPSTICK (test code = KETU) NEGATIVE mg/dL NEGATIVE UA SPECIFIC GRAVITY (test code = SGU) 1.013 1.001-1.035 UA BLOOD DIPSTICK (test code = AURY) Negative NEGATIVE UA PH DIPSTICK (test code = RM) 5.0 5.0-8.0 UA PROTEIN DIPSTICK (test code = PROU) NEGATIVE mg/dL NEGATIVE UA UROBILINIOGEN DIPSTICK (test code = URO) NEGATIVE mg/dL NEGATIVE UA NITRITE DIPSTICK (test code = BRITNI) NEGATIVE NEGATIVE UA LEUKOCYTE ESTERASE DIPSTICK (test code = LEUU) NEGATIVE uL NEGA TIVE UA WBC (test code = WBCU) 0-5 #/HPF 0-5 UA RBC (test code = RBCU) 0-2 #/HPF 0-5 UA EPITHELIAL CELLS (test code = EPIU) Few (2-5/hpf) per HPF FEW UA BACTERIA (test code = BACU) FEW #/HPF NONE UA MUCUS (test code = MUCU) FEW #/LPF FEW UA AMORPHOUS SEDIMENT (test code = AMORU) FEW #/LPF NONE Urine Source? Clean CatchURINALYSIS [id number] 08:56:00* Test Item Value Reference Range Interpretation Comments UA COLOR (test code = COLU) YELLOW YELLOW UA APPEARANCE (test code = APPU) Cloudy CLEAR A UA GLUCOSE DIPSTICK (test code = DGLUU) NEGATIVE mg/dL NEGATIVE UA BILIRUBIN DIPSTICK (test code = BILU) NEGATIVE mg/dL NEGATIVE UA KETONE DIPSTICK (test code = KETU) NEGATIVE mg/dL NEGATIVE UA SPECIFIC GRAVITY (test code = SGU) 1.013 1.001-1.035 UA BLOOD DIPSTICK (test code = AURY) Negative NEGATIVE UA PH DIPSTICK (test code = RM) 5.0 5.0-8.0 UA PROTEIN DIPSTICK (test code = PROU) NEGATIVE mg/dL NEGATIVE UA UROBILINIOGEN DIPSTICK (test code = URO) NEGATIVE mg/dL NEGATIVE UA NITRITE DIPSTICK (test code = BRITNI) NEGATIVE NEGATIVE UA LEUKOCYTE ESTERASE DIPSTICK (test code = LEUU) NEGATIVE uL NEGA TIVE UA WBC (test code = WBCU) per HPF 0-5 Urine Source? Clean CatchUR NA,[id number] 08:47:00* Test Item Value Reference Range Interpretation Comments UR NA,RANDOM (test code = CRISTOPHER) 45 mmol/L 20-110 N UR CREATININE [id number] 08:47:00* Test Item Value Reference Range Interpretation Comments UR CREATININE RANDOM (test code = CREATU) 104.0 mg/dL 30-125 N UR NA,[id number] 08:42:00* Test Item Value Reference Range Interpretation Comments UR NA,RANDOM (test code = CRISTOPHER) 45 mmol/L 20-110 N UR CREATININE [id number] 08:42:00* Test Item Value Reference Range Interpretation Comments UR CREATININE RANDOM (test code = CREATU) mg/dL 30-125 - US RETRO [id number] 07:41:00 Name: EUGENIO GREEN [facility] : 1950 Age/S: 68 / F [address] [facility] Unit #: [id number] Loc: [place] [address] Phys: Rangel Anne [employer] WORK[employer] Acct: [id number] Dis Date: Status: ADM IN PHONE #: [phone] Exam Date: 05/03/2018 0113 FAX #: [phone] Reason: Acute Renal Failure EXAMS: CPT CODE: [id number] RETRO LTD [id number] EXAM: Ultrasound retroperitoneum, limited; INFORMATION: Acute renal failure; creatinine 5.9; FINDINGS: The kidneys are of normal size and shape. The right kidney measures 9.6 x 4.7 x 4.5 cm, with a parenchymal thickness of 2 cm. The left kidney measures 9.3 x 4.5 0.4 cm, with a parenchymal thickness of 1.6 cm. No evidence of hydronephrosis or stones. Slightly increased parenchymal echogenicity is noticed. The urinary bladder is unremarkable; IMPRESSION: 1. Normal-sized kidneys without evidence of hydronephrosis or stones. 2. Slightly increased parenchymal echogenicity is consistent with diffuse parenchymal disease. at 0741 Reported and signed by: Rom Membreno M.D. CC: Billie Ocampo MD; Erasto Clark MD; Rangel Anne [employer]DC[employer] WORKER Technologist: BOOKER MORE RDMS Trnscb Date/Time: 05/03/2018 (740) [email or web address] Orig Print D/T: S: 05/03/2018 (0724) Probe: PAGE 1 Signed Report - CT HEAD/BRAIN W/O [id number] 07:25:00 Name: EUGENIO GREEN [facility] : 1950 Age/S: 68 / F [address] [facility] Unit #: [id number] Loc: [place] [address] Phys: Rangel nAne [employer] WORK[employer] Acct: [id number] Dis Date: Status: ADM IN PHONE #: [phone] Exam Date: 05/03/2018 0558 FAX #: [phone] Reason: Fall +LOC EXAMS: CPT CODE: [id number] CT HEAD/BRAIN W/O CONT 93737 EXAM: CT of the head without contrast; INFORMATION: Fall and loss of consciousness; TECHNIQUE AND FINDINGS: CT dose reduction protocol; 2.5 mm axial scans; There is no evidence of intra or extra-axial hemorrhage, mass lesions or midline shift. There are moderate periventricular and deep white matter hypodensities. Otherwise, unremarkable hoang/white matter differentiation. Ventricles are symmetric in the mildly dilated; sulci and basilar cisterns are intact. The calvarium is intact. Small fluid collection in the right maxillary sinus; the remainder of the sinuses and mastoid air cells are well aerated. There may be a small scalp hematoma in the left frontoparietal region. IMPRESSION: 1. No evidence of intracranial hemorrhage or acute territorial infarction. 2. Chronic ischemic white matter changes. 3. Mild atrophy. 4. No evidence of skull fracture. 5. Right maxillary sinusitis. at 1038 Reported and signed by: Rom Membreno M.D. CC: Billie Ocampo MD; Erasto Clark MD; Rangel Anne NP Technologist:MORRIS VIDAL CT CTDI: DLP: Trnscb Date/Time: 05/03/2018 (0725) Keith Orig Print D/T: S: 05/03/2018 (0728) CTDI: DLP: PAGE 1 Signed Report CBC W/MANUAL DIFF 2018-05-03 06:26:00* Test Item Value Reference Range Interpretation Comments WHITE BLOOD CELL (test code = WBC) 4.9 K/mm3 4.5-12.5 N RED BLOOD CELL (test code = RBC) 3.43 mill/mm3 3.7-5.2 L HEMOGLOBIN (test code = HGB) 10.6 gram/dL 11.5-15.5 L HEMATOCRIT (test code = HCT) 34.4 % 36.0-46.0 L MEAN CELL VOLUME (test code = MCV) 100.3 fL 80-98 H MEAN CELL HGB (test code = MCH) 30.9 picogram 27.0-33.0 N MEAN CELL HGB CONCETRATION (test code = MCHC) 30.8 gram/dL 33.0-36. 0 L RED CELL DISTRIBUTION WIDTH (test code = RDW) 14.2 % 11.6-16. 2 N RED CELL DISTRIBUTION WIDTH SD (test code = RDW-SD) 52.5 fL 37 .0-51.0 H PLATELET COUNT (test code = PLT) 145 K/mm3 150-450 L MEAN PLATELET VOLUME (test code = MPV) 11.5 fL 6.7-11.0 H IMMATURE GRANULOCYTE % (test code = IG%) 0.6 % 0.0-5.0 N NUCLEATED RBC % (test code = NRBC%) 0.0 % 0-0 N NEUTROPHIL # (test code = NT#) 2.09 K/mm3 1.8-7.7 N IMMATURE GRANULOCYTE # (test code = IG#) 0.03 x10 3/uL 0-0.03 N LYMPHOCYTE # (test code = LY#) 2.28 K/mm3 1.0-5.0 N MONOCYTE # (test code = MO#) 0.43 K/mm3 0-0.8 N EOSINOPHIL # (test code = EO#) 0.05 K/mm3 0.0-0.5 N BASOPHIL # (test code = BA#) 0.01 K/mm3 0.0-0.2 N NUCLEATED RBC # (test code = NRBC#) 0.00 K/mm3 0.0-0.1 N MANUAL DIFF REQUIRED (test code = MDIFF) YES STAIN ACCEPTABILITY (test code = STN ACCEPTABLE) STAIN ACCEPTABLE TOTAL CELLS COUNTED (test code = TCC) 115 #CELLS SEGMENTED NEUTROPHILS (test code = SEG) 52.2 % 39-69 N BAND NEUTROPHIL (test code = BAND) 0 % 0-10 N LYMPHOCYTE (test code = LYMPH) 40.0 % 25-55 N REACTIVE LYMPH (test code = RELYMPH) 0.9 % MONOCYTE (test code = MON) 6.1 % 0-10 N EOSINOPHIL (test code = EOS) 0.8 % 0.0-5.0 N BASOPHIL (test code = BASO) 0 % 0-1.0 N METAMYELOCYTE (test code = META) 0 % 0-0 N MYELOCYTE (test code = MYELO) 0 % 0.0-0.0 N PROMYELOCYTE (test code = PROM) 0 % 0-0 N MORPHOLOGY COMMENT (test code = MOC) NORMAL PLATELET ESTIMATE (test code = PLTEST) ADEQUATE PLATELET MORPHOLOGY (test code = PLTMORPH) NORMAL IMMATURE FORMS (test code = IMMAT) 0 % CBC W/MANUAL [id number] 05:41:00* Test Item Value Reference Range Interpretation Comments WHITE BLOOD CELL (test code = WBC) 4.9 K/mm3 4.5-12.5 N RED BLOOD CELL (test code = RBC) 3.43 mill/mm3 3.7-5.2 L HEMOGLOBIN (test code = HGB) 10.6 gram/dL 11.5-15.5 L HEMATOCRIT (test code = HCT) 34.4 % 36.0-46.0 L MEAN CELL VOLUME (test code = MCV) 100.3 fL 80-98 H MEAN CELL HGB (test code = MCH) 30.9 picogram 27.0-33.0 N MEAN CELL HGB CONCETRATION (test code = MCHC) 30.8 gram/dL 33.0-36. 0 L RED CELL DISTRIBUTION WIDTH (test code = RDW) 14.2 % 11.6-16. 2 N RED CELL DISTRIBUTION WIDTH SD (test code = RDW-SD) 52.5 fL 37 .0-51.0 H PLATELET COUNT (test code = PLT) 145 K/mm3 150-450 L MEAN PLATELET VOLUME (test code = MPV) 11.5 fL 6.7-11.0 H IMMATURE GRANULOCYTE % (test code = IG%) 0.6 % 0.0-5.0 N NUCLEATED RBC % (test code = NRBC%) 0.0 % 0-0 N NEUTROPHIL # (test code = NT#) 2.09 K/mm3 1.8-7.7 N IMMATURE GRANULOCYTE # (test code = IG#) 0.03 x10 3/uL 0-0.03 N LYMPHOCYTE # (test code = LY#) 2.28 K/mm3 1.0-5.0 N MONOCYTE # (test code = MO#) 0.43 K/mm3 0-0.8 N EOSINOPHIL # (test code = EO#) 0.05 K/mm3 0.0-0.5 N BASOPHIL # (test code = BA#) 0.01 K/mm3 0.0-0.2 N NUCLEATED RBC # (test code = NRBC#) 0.00 K/mm3 0.0-0.1 N MANUAL DIFF REQUIRED (test code = MDIFF) YES STAIN ACCEPTABILITY (test code = STN ACCEPTABLE) TOTAL CELLS COUNTED (test code = TCC) #CELLS SEGMENTED NEUTROPHILS (test code = SEG) % 39-69 LYMPHOCYTE (test code = LYMPH) % 25-55 MONOCYTE (test code = MON) % 0-10 MORPHOLOGY COMMENT (test code = MOC) PLATELET ESTIMATE (test code = PLTEST) PLATELET MORPHOLOGY (test code = PLTMORPH) CBC W/MANUAL [id number] 05:40:00* Test Item Value Reference Range Interpretation Comments WHITE BLOOD CELL (test code = WBC) 4.9 K/mm3 4.5-12.5 N RED BLOOD CELL (test code = RBC) 3.43 mill/mm3 3.7-5.2 L HEMOGLOBIN (test code = HGB) 10.6 gram/dL 11.5-15.5 L HEMATOCRIT (test code = HCT) 34.4 % 36.0-46.0 L MEAN CELL VOLUME (test code = MCV) 100.3 fL 80-98 H MEAN CELL HGB (test code = MCH) 30.9 picogram 27.0-33.0 N MEAN CELL HGB CONCETRATION (test code = MCHC) 30.8 gram/dL 33.0-36. 0 L RED CELL DISTRIBUTION WIDTH (test code = RDW) 14.2 % 11.6-16. 2 N RED CELL DISTRIBUTION WIDTH SD (test code = RDW-SD) 52.5 fL 37 .0-51.0 H PLATELET COUNT (test code = PLT) 145 K/mm3 150-450 L MEAN PLATELET VOLUME (test code = MPV) 11.5 fL 6.7-11.0 H IMMATURE GRANULOCYTE % (test code = IG%) 0.6 % 0.0-5.0 N NUCLEATED RBC % (test code = NRBC%) 0.0 % 0-0 N NEUTROPHIL # (test code = NT#) 2.09 K/mm3 1.8-7.7 N IMMATURE GRANULOCYTE # (test code = IG#) 0.03 x10 3/uL 0-0.03 N LYMPHOCYTE # (test code = LY#) 2.28 K/mm3 1.0-5.0 N MONOCYTE # (test code = MO#) 0.43 K/mm3 0-0.8 N EOSINOPHIL # (test code = EO#) 0.05 K/mm3 0.0-0.5 N BASOPHIL # (test code = BA#) 0.01 K/mm3 0.0-0.2 N NUCLEATED RBC # (test code = NRBC#) 0.00 K/mm3 0.0-0.1 N MANUAL DIFF REQUIRED (test code = MDIFF) YES STAIN ACCEPTABILITY (test code = STN ACCEPTABLE) TOTAL CELLS COUNTED (test code = TCC) #CELLS SEGMENTED NEUTROPHILS (test code = SEG) % 39-69 LYMPHOCYTE (test code = LYMPH) % 25-55 MONOCYTE (test code = MON) % 0-10 EOSINOPHIL (test code = EOS) % 0.0-5.0 CABOT RINGS (test code = CAB) MORPHOLOGY COMMENT (test code = MOC) PLATELET ESTIMATE (test code = PLTEST) PLATELET MORPHOLOGY (test code = PLTMORPH) CBC W/MANUAL [id number] 05:40:00* Test Item Value Reference Range Interpretation Comments WHITE BLOOD CELL (test code = WBC) 4.9 K/mm3 4.5-12.5 N RED BLOOD CELL (test code = RBC) 3.43 mill/mm3 3.7-5.2 L HEMOGLOBIN (test code = HGB) 10.6 gram/dL 11.5-15.5 L HEMATOCRIT (test code = HCT) 34.4 % 36.0-46.0 L MEAN CELL VOLUME (test code = MCV) 100.3 fL 80-98 H MEAN CELL HGB (test code = MCH) 30.9 picogram 27.0-33.0 N MEAN CELL HGB CONCETRATION (test code = MCHC) 30.8 gram/dL 33.0-36. 0 L RED CELL DISTRIBUTION WIDTH (test code = RDW) 14.2 % 11.6-16. 2 N RED CELL DISTRIBUTION WIDTH SD (test code = RDW-SD) 52.5 fL 37 .0-51.0 H PLATELET COUNT (test code = PLT) 145 K/mm3 150-450 L MEAN PLATELET VOLUME (test code = MPV) 11.5 fL 6.7-11.0 H IMMATURE GRANULOCYTE % (test code = IG%) 0.6 % 0.0-5.0 N NUCLEATED RBC % (test code = NRBC%) 0.0 % 0-0 N NEUTROPHIL # (test code = NT#) 2.09 K/mm3 1.8-7.7 N IMMATURE GRANULOCYTE # (test code = IG#) 0.03 x10 3/uL 0-0.03 N LYMPHOCYTE # (test code = LY#) 2.28 K/mm3 1.0-5.0 N MONOCYTE # (test code = MO#) 0.43 K/mm3 0-0.8 N EOSINOPHIL # (test code = EO#) 0.05 K/mm3 0.0-0.5 N BASOPHIL # (test code = BA#) 0.01 K/mm3 0.0-0.2 N NUCLEATED RBC # (test code = NRBC#) 0.00 K/mm3 0.0-0.1 N MANUAL DIFF REQUIRED (test code = MDIFF) YES STAIN ACCEPTABILITY (test code = STN ACCEPTABLE) TOTAL CELLS COUNTED (test code = TCC) #CELLS SEGMENTED NEUTROPHILS (test code = SEG) % 39-69 LYMPHOCYTE (test code = LYMPH) % 25-55 MONOCYTE (test code = MON) % 0-10 EOSINOPHIL (test code = EOS) % 0.0-5.0 CABOT RINGS (test code = CAB) MORPHOLOGY COMMENT (test code = MOC) PLATELET ESTIMATE (test code = PLTEST) PLATELET MORPHOLOGY (test code = PLTMORPH) CBC W/MANUAL [id number] 05:40:00* Test Item Value Reference Range Interpretation Comments WHITE BLOOD CELL (test code = WBC) 4.9 K/mm3 4.5-12.5 N RED BLOOD CELL (test code = RBC) 3.43 mill/mm3 3.7-5.2 L HEMOGLOBIN (test code = HGB) 10.6 gram/dL 11.5-15.5 L HEMATOCRIT (test code = HCT) 34.4 % 36.0-46.0 L MEAN CELL VOLUME (test code = MCV) 100.3 fL 80-98 H MEAN CELL HGB (test code = MCH) 30.9 picogram 27.0-33.0 N MEAN CELL HGB CONCETRATION (test code = MCHC) 30.8 gram/dL 33.0-36. 0 L RED CELL DISTRIBUTION WIDTH (test code = RDW) 14.2 % 11.6-16. 2 N RED CELL DISTRIBUTION WIDTH SD (test code = RDW-SD) 52.5 fL 37 .0-51.0 H PLATELET COUNT (test code = PLT) 145 K/mm3 150-450 L MEAN PLATELET VOLUME (test code = MPV) 11.5 fL 6.7-11.0 H IMMATURE GRANULOCYTE % (test code = IG%) 0.6 % 0.0-5.0 N NUCLEATED RBC % (test code = NRBC%) 0.0 % 0-0 N NEUTROPHIL # (test code = NT#) 2.09 K/mm3 1.8-7.7 N IMMATURE GRANULOCYTE # (test code = IG#) 0.03 x10 3/uL 0-0.03 N LYMPHOCYTE # (test code = LY#) 2.28 K/mm3 1.0-5.0 N MONOCYTE # (test code = MO#) 0.43 K/mm3 0-0.8 N EOSINOPHIL # (test code = EO#) 0.05 K/mm3 0.0-0.5 N BASOPHIL # (test code = BA#) 0.01 K/mm3 0.0-0.2 N NUCLEATED RBC # (test code = NRBC#) 0.00 K/mm3 0.0-0.1 N MANUAL DIFF REQUIRED (test code = MDIFF) YES STAIN ACCEPTABILITY (test code = STN ACCEPTABLE) TOTAL CELLS COUNTED (test code = TCC) #CELLS SEGMENTED NEUTROPHILS (test code = SEG) % 39-69 LYMPHOCYTE (test code = LYMPH) % 25-55 MONOCYTE (test code = MON) % 0-10 EOSINOPHIL (test code = EOS) % 0.0-5.0 MORPHOLOGY COMMENT (test code = MOC) PLATELET ESTIMATE (test code = PLTEST) PLATELET MORPHOLOGY (test code = PLTMORPH) CBC W/MANUAL [id number] 05:40:00* Test Item Value Reference Range Interpretation Comments WHITE BLOOD CELL (test code = WBC) 4.9 K/mm3 4.5-12.5 N RED BLOOD CELL (test code = RBC) 3.43 mill/mm3 3.7-5.2 L HEMOGLOBIN (test code = HGB) 10.6 gram/dL 11.5-15.5 L HEMATOCRIT (test code = HCT) 34.4 % 36.0-46.0 L MEAN CELL VOLUME (test code = MCV) 100.3 fL 80-98 H MEAN CELL HGB (test code = MCH) 30.9 picogram 27.0-33.0 N MEAN CELL HGB CONCETRATION (test code = MCHC) 30.8 gram/dL 33.0-36. 0 L RED CELL DISTRIBUTION WIDTH (test code = RDW) 14.2 % 11.6-16. 2 N RED CELL DISTRIBUTION WIDTH SD (test code = RDW-SD) 52.5 fL 37 .0-51.0 H PLATELET COUNT (test code = PLT) 145 K/mm3 150-450 L MEAN PLATELET VOLUME (test code = MPV) 11.5 fL 6.7-11.0 H IMMATURE GRANULOCYTE % (test code = IG%) 0.6 % 0.0-5.0 N NUCLEATED RBC % (test code = NRBC%) 0.0 % 0-0 N NEUTROPHIL # (test code = NT#) 2.09 K/mm3 1.8-7.7 N IMMATURE GRANULOCYTE # (test code = IG#) 0.03 x10 3/uL 0-0.03 N LYMPHOCYTE # (test code = LY#) 2.28 K/mm3 1.0-5.0 N MONOCYTE # (test code = MO#) 0.43 K/mm3 0-0.8 N EOSINOPHIL # (test code = EO#) 0.05 K/mm3 0.0-0.5 N BASOPHIL # (test code = BA#) 0.01 K/mm3 0.0-0.2 N NUCLEATED RBC # (test code = NRBC#) 0.00 K/mm3 0.0-0.1 N MANUAL DIFF REQUIRED (test code = MDIFF) YES STAIN ACCEPTABILITY (test code = STN ACCEPTABLE) TOTAL CELLS COUNTED (test code = TCC) #CELLS SEGMENTED NEUTROPHILS (test code = SEG) % 39-69 LYMPHOCYTE (test code = LYMPH) % 25-55 MONOCYTE (test code = MON) % 0-10 EOSINOPHIL (test code = EOS) % 0.0-5.0 CABOT RINGS (test code = CAB) MORPHOLOGY COMMENT (test code = MOC) PLATELET ESTIMATE (test code = PLTEST) PLATELET MORPHOLOGY (test code = PLTMORPH) BASIC METABOLIC [id number] 05:32:00* Test Item Value Reference Range Interpretation Comments SODIUM (test code = NA) 137 mmol/L 136-145 N POTASSIUM (test code = K) 5.1 mmol/L 3.5-5.1 N CHLORIDE (test code = CL) 107.0 mmol/L 98-107 N CARBON DIOXIDE (test code = CO2) 19.0 mmol/L 21-32 L ANION GAP (test code = GAP) 16.1 10-20 N GLUCOSE (test code = GLU) 124 mg/dL 74-106 H BLOOD UREA NITROGEN (test code = BUN) 83 mg/dL 7-18 H GLOMERULAR FILTRATION RATE (test code = GFR) 10 mL/min >=60 Estimated GFR by using Modified MDRD formula.Chronic kidney disease is defined as either kidney damageor GFR <60 mL/min/1.73 m2 for >3 months. CREATININE (test code = CREAT) 4.50 mg/dL 0.55-1.02 H Note change in reference range due to change in reagent. BUN/CREATININE RATIO (test code = BUN/CREA) 18.6 10-20 N CALCIUM (test code = CA) 7.9 mg/dL 8.5-10.1 L BASIC METABOLIC [id number] 05:27:00* Test Item Value Reference Range Interpretation Comments SODIUM (test code = NA) 137 mmol/L 136-145 N POTASSIUM (test code = K) 5.1 mmol/L 3.5-5.1 N CHLORIDE (test code = CL) 107.0 mmol/L 98-107 N CARBON DIOXIDE (test code = CO2) mmol/L 21-32 ANION GAP (test code = GAP) 10-20 GLUCOSE (test code = GLU) mg/dL 74-106 BLOOD UREA NITROGEN (test code = BUN) mg/dL 7-18 GLOMERULAR FILTRATION RATE (test code = GFR) mL/min >=60 CREATININE (test code = CREAT) mg/dL 0.55-1.02 BUN/CREATININE RATIO (test code = BUN/CREA) 10-20 CALCIUM (test code = CA) mg/dL 8.5-10.1 [id number] 03:35:00* Test Item Value Reference Range Interpretation Comments GLUBED (test code = GLUBED) 62 mg/dL 74-106 L Performed by certified convertible power shovel operator at [facility] PROCALCITONIN (PCT)2018-05-03 01:56:00* Test Item Value Reference Range Interpretation Comments PROCALCITONIN (PCT) (test code = PROCAL) 0.26 ng/ml Concentration Interpretation (ng/mL) <0.51 Sepsis is not likely. Local bacterial infection is possible. (LOW RISK for progression to Sepsis) 0.51 - 2.00 Sepsis is possible, but other conditions are known to elevate PCT as well. (MODERATE RISK for progression to Sepsis) > 2.00 Sepsis is likely, unless other causes are known. (HIGH RISK for progression to Severe Sepsis or Septic Shock) 10.00 High likelihood of Severe Sepsis or Septic or higher Shock. *Increased PCT levels may not always be related to systemic bacterial infection.*Low PCT levels do not automatically exclude the presence of bacterial infection.*All results should be interpreted taking into account the patients history. BASIC METABOLIC [id number] 01:28:00* Test Item Value Reference Range Interpretation Comments SODIUM (test code = NA) 136 mmol/L 136-145 N POTASSIUM (test code = K) 5.6 mmol/L 3.5-5.1 H CHLORIDE (test code = CL) 107.0 mmol/L 98-107 N CARBON DIOXIDE (test code = CO2) 19.0 mmol/L 21-32 L ANION GAP (test code = GAP) 15.6 10-20 N GLUCOSE (test code = GLU) 87 mg/dL 74-106 N BLOOD UREA NITROGEN (test code = BUN) 94 mg/dL 7-18 H GLOMERULAR FILTRATION RATE (test code = GFR) 8 mL/min >=60 Estimated GFR by using Modified MDRD formula.Chronic kidney disease is defined as either kidney damageor GFR <60 mL/min/1.73 m2 for >3 months. CREATININE (test code = CREAT) 5.20 mg/dL 0.55-1.02 H Note change in reference range due to change in reagent. BUN/CREATININE RATIO (test code = BUN/CREA) 18.3 10-20 N CALCIUM (test code = CA) 7.5 mg/dL 8.5-10.1 L [id number] 01:28:00* Test Item Value Reference Range Interpretation Comments TROPONIN-I (test code = TROPI) <0.015 ng/mL 0-0.045 N BASIC METABOLIC [id number] 01:08:00* Test Item Value Reference Range Interpretation Comments SODIUM (test code = NA) 136 mmol/L 136-145 N POTASSIUM (test code = K) 5.6 mmol/L 3.5-5.1 H CHLORIDE (test code = CL) 107.0 mmol/L 98-107 N CARBON DIOXIDE (test code = CO2) mmol/L 21-32 ANION GAP (test code = GAP) 10-20 GLUCOSE (test code = GLU) mg/dL 74-106 BLOOD UREA NITROGEN (test code = BUN) mg/dL 7-18 GLOMERULAR FILTRATION RATE (test code = GFR) mL/min >=60 CREATININE (test code = CREAT) mg/dL 0.55-1.02 BUN/CREATININE RATIO (test code = BUN/CREA) 10-20 CALCIUM (test code = CA) mg/dL 8.5-10.1 [id number] 01:08:00* Test Item Value Reference Range Interpretation Comments TROPONIN-I (test code = TROPI) ng/mL 0-0.045 [id number] 20:16:00* Test Item Value Reference Range Interpretation Comments ACETAMINOPHEN (test code = ACET) < 10 mcg/mL 0-30 N A RANGE OF 10-30 UG/ML IS A THERAPEUTIC RANGE. TOXIC CONCENTRATIONS: >150 UG/ML AFTER 4 HOURS OF INGESTION > 50 UG/ML AFTER 12 HOURS OF INGESTION ADD ONB-TYPE NATRIURETIC [id number] 19:41:00* Test Item Value Reference Range Interpretation Comments B-TYPE NATRIURETIC PEPTIDE (test code = BNP) 12.3 pg/mL 0-100 N ADD ONCOMPREHENSIVE METABOLIC [id number] 19:27:00* Test Item Value Reference Range Interpretation Comments SODIUM (test code = NA) 132 mmol/L 135-148 L POTASSIUM (test code = K) 6.0 mmol/L 3.5-5.1 H CHLORIDE (test code = CL) 99 mmol/L 101-109 L CARBON DIOXIDE (test code = CO2) 19.8 mmol/L 21-32 L ANION GAP (test code = GAP) 19 mmol/L 10-20 N GLUCOSE (test code = GLU) 103 mg/dL 74-106 N BLOOD UREA NITROGEN (test code = BUN) 105 mg/dL 3-21 H CREATININE (test code = CREAT) 5.89 mg/dL 0.55-1.3 H BUN/CREATININE RATIO (test code = BUN/CREA) 17.8 10-20 N TOTAL PROTEIN (test code = PROT) 7.0 g/dL 6.5-8.4 N ALBUMIN (test code = ALB) 3.3 g/dL 3.4-4.8 L GLOBULIN (test code = GLOB) 3.7 G/DL 1-10 N ALBUMIN/GLOBULIN RATIO (test code = A/G) 0.9 RATIO 0.75-1.50 N CALCIUM (test code = CA) 8.8 mg/dL 8.4-10.2 N BILIRUBIN TOTAL (test code = BILT) 0.50 mg/dL 0.0-1.0 N SGOT/AST (test code = AST) 19 U/L 6-32 N SGPT/ALT (test code = ALT) 24 U/L 12-78 N N ote: Change in REFERENCE RANGE due to new reagent method. ALKALINE PHOSPHATASE TOTAL (test code = ALKP) 64 U/L 38-126 N [id number] 19:27:00* Test Item Value Reference Range Interpretation Comments TROPONIN-I (test code = TROPI) <0.015 ng/mL 0.00-0.056 N - XR CHEST 1 [id number] 19:27:00 Name: EUGENIO GREEN [facility] : 1950 Age/S:68 /F [address] [facility] Unit#:[id number] Loc: [place] [address] Phys: Mejia Conteh MD Dis Date: PHONE #: [phone] Status: REG ER FAX #: [phone] Exam Date: 05/02/2018 Reason: sepsis EXAMS: CPT CODE: [id number] XR CHEST 1 V [id number] REASON FOR EXAM: sepsis EXAM ORDER DATE: 05/02/2018 7:06 PM Ordering M.D.: Mejia Conteh MD PROCEDURE: - XR CHEST 1 V COMPARISON: 04/27/2018 FINDINGS: Portable AP frontal view of the chest obtained at 7:13 PM shows clear lungs without evidence of consolidation. There is no evidence of effusion. The heart size is minimally enlarged. Pulmonary vasculatures are unremarkable. IMPRESSION: No active disease. at 1927 Reported and signed by: Dae Davis M.D. CC: Mejia Conteh MD; Erasto Clark MD Technologist: SANDRA BYNUM RT(R),RDMS,CT Trnscrpt Data: 05/02/2018 (1926) t.AMY.VTL Orig Print D/T: S: 05/02/2018 (1929) PAGE 1 Signed Report LACTIC [id number] 19:22:00* Test Item Value Reference Range Interpretation Comments LACTIC ACID (test code = LACT) 1.1 MMOL/L 0.4-1.9 N CBC W/AUTO [id number] 19:11:00* Test Item Value Reference Range Interpretation Comments WHITE BLOOD CELL (test code = WBC) 4.7 K/mm3 4.5-12.5 N RED BLOOD CELL (test code = RBC) 3.49 mill/mm3 3.7-5.2 L HEMOGLOBIN (test code = HGB) 11.1 gram/dL 11.5-15.5 L HEMATOCRIT (test code = HCT) 34.0 % 36.0-46.0 L MEAN CELL VOLUME (test code = MCV) 97.4 fL 80-98 N MEAN CELL HGB (test code = MCH) 31.8 picogram 27.0-33.0 N MEAN CELL HGB CONCETRATION (test code = MCHC) 32.6 gram/dL 33.0-36. 0 L RED CELL DISTRIBUTION WIDTH (test code = RDW) 14.4 % 11.6-16. 2 N RED CELL DISTRIBUTION WIDTH SD (test code = RDW-SD) 49.0 fL 39 .1-52.0 N PLATELET COUNT (test code = PLT) 144 K/mm3 150-450 L MEAN PLATELET VOLUME (test code = MPV) 11.7 fL 6.7-11.0 H NEUTROPHIL % (test code = NT%) 43.2 % 39.0-69.0 N LYMPHOCYTE % (test code = LY%) 45.7 % 25.0-55.0 N MONOCYTE % (test code = MO%) 9.0 % 0.0-10.0 N EOSINOPHIL % (test code = EO%) 1.9 % 0.0-5.0 N BASOPHIL % (test code = BA%) 0.2 % 0.0-1.0 N NEUTROPHIL # (test code = NT#) 2.01 K/mm3 1.8-7.7 N LYMPHOCYTE # (test code = LY#) 2.13 K/mm3 1.0-5.0 N MONOCYTE # (test code = MO#) 0.42 K/mm3 0-0.8 N EOSINOPHIL # (test code = EO#) 0.09 K/mm3 0.0-0.5 N BASOPHIL # (test code = BA#) 0.01 K/mm3 0.0-0.2 N MANUAL DIFF REQUIRED (test code = MDIFF) NO - XR CHEST 2 [id number] 16:54:00 Name: EUGENIO GREEN [facility] : 1950 Age/S:68 /F [address] [facility] Unit#:[id number] Loc: [place] [address] Phys: Dee Snow [employer] WORK[employer] Dis Date: PHONE #: [phone] Status: REG ER FAX #: [phone] Exam Date: 04/27/2018 Reason: cough, fever EXAMS: CPT CODE: [id number] XR CHEST 2 V 64291 HISTORY: cough, fever TECHNIQUE: PA and lateral chest x-ray COMPARISON: 05/18/10 FINDINGS: No airspace consolidation or pleural effusion. Normal heart size. Mediastinal silhouette is unremarkable. Thoracic spondylosis. IMPRESSION: No radiographic evidence of acute cardiopulmonary process. at 0437 Reported and signed by: Patricia Dale D.O. CC: Mejia Conteh MD; Emmanuelle Kennedy MD Technologist: Paige Duque RT(R)(CT) Trnscrpt Data: 04/27/2018 ([id number]) [id number] Orig Print D/T: S: 04/27/2018 ([id number]) PAGE 1 Signed Report URINALYSIS [id number] 14:59:00* Test Item Value Reference Range Interpretation Comments UA COLOR (test code = COLU) LIGHT YELLOW YELLOW UA APPEARANCE (test code = APPU) CLEAR CLEAR UA GLUCOSE DIPSTICK (test code = DGLUU) NORMAL mg/dL NEGATIVE UA BILIRUBIN DIPSTICK (test code = BILU) NEGATIVE mg/dL NEGATIVE UA KETONE DIPSTICK (test code = KETU) neg mg/dL NEGATIVE UA SPECIFIC GRAVITY (test code = SGU) 1.010 1.001-1.035 UA BLOOD DIPSTICK (test code = AURY) 10 (Trace) Mane/uL NEGATIVE A UA PH DIPSTICK (test code = RM) 5.0 5.0-8.0 UA PROTEIN DIPSTICK (test code = PROU) 30 (1+) mg/dL Neg-15 A UA UROBILINIOGEN DIPSTICK (test code = URO) norm mg/dL 0.0-0.2 UA NITRITE DIPSTICK (test code = BRITNI) NEGATIVE NEGATIVE UA LEUKOCYTE ESTERASE DIPSTICK (test code = LEUU) NEGATIVE uL NEGA TIVE UA WBC (test code = WBCU) 0-5 per HPF 0-5 IN SOME URINARY TRACT INFECTIONS THERE MAY NOT BE ENOUGHWBCs IN THE URINE TO TRIGGER AN AUTOMATIC (REFLEX) URINECULTURE. A SEPERATE ORDER FOR URINE CULTURE IS RECOMMENDEDIF THERE IS STRONG SUPPORT FOR A URINARY TRACT INFECTIONCLINICALLY. UA RBC (test code = RBCU) 0-2 per HPF 0-5 UA EPITHELIAL CELLS (test code = EPIU) Few (2-5/hpf) per HPF Few UA BACTERIA (test code = BACU) TRACE per HPF NONE Urine Source? Clean CatchB-TYPE NATRIURETIC [id number] 14:48:00* Test Item Value Reference Range Interpretation Comments B-TYPE NATRIURETIC PEPTIDE (test code = BNP) 21.2 pg/mL 0-100 N COMPREHENSIVE METABOLIC [id number] 14:44:00* Test Item Value Reference Range Interpretation Comments SODIUM (test code = NA) 134 mmol/L 135-148 L POTASSIUM (test code = K) 4.2 mmol/L 3.5-5.1 N CHLORIDE (test code = CL) 98 mmol/L 101-109 L CARBON DIOXIDE (test code = CO2) 23.4 mmol/L 21-32 N ANION GAP (test code = GAP) 17 mmol/L 10-20 N GLUCOSE (test code = GLU) 111 mg/dL 74-106 H BLOOD UREA NITROGEN (test code = BUN) 57 mg/dL 3-21 H CREATININE (test code = CREAT) 2.40 mg/dL 0.55-1.3 H BUN/CREATININE RATIO (test code = BUN/CREA) 23.8 10-20 H TOTAL PROTEIN (test code = PROT) 7.7 g/dL 6.5-8.4 N ALBUMIN (test code = ALB) 3.8 g/dL 3.4-4.8 N GLOBULIN (test code = GLOB) 3.9 G/DL 1-10 N ALBUMIN/GLOBULIN RATIO (test code = A/G) 1.0 RATIO 0.75-1.50 N CALCIUM (test code = CA) 8.7 mg/dL 8.4-10.2 N BILIRUBIN TOTAL (test code = BILT) 0.30 mg/dL 0.0-1.0 N SGOT/AST (test code = AST) 34 U/L 6-32 H SGPT/ALT (test code = ALT) 42 U/L 12-78 N N ote: Change in REFERENCE RANGE due to new reagent method. ALKALINE PHOSPHATASE TOTAL (test code = ALKP) 68 U/L 38-126 N COMPREHENSIVE METABOLIC [id number] 14:37:00* Test Item Value Reference Range Interpretation Comments SODIUM (test code = NA) 134 mmol/L 135-148 L POTASSIUM (test code = K) 4.2 mmol/L 3.5-5.1 N CHLORIDE (test code = CL) 98 mmol/L 101-109 L CARBON DIOXIDE (test code = CO2) 23.4 mmol/L 21-32 N ANION GAP (test code = GAP) 17 mmol/L 10-20 N GLUCOSE (test code = GLU) 111 mg/dL 74-106 H BLOOD UREA NITROGEN (test code = BUN) 57 mg/dL 3-21 H CREATININE (test code = CREAT) 2.40 mg/dL 0.55-1.3 H BUN/CREATININE RATIO (test code = BUN/CREA) 23.8 10-20 H TOTAL PROTEIN (test code = PROT) gram/dL 6.4-8.2 ALBUMIN (test code = ALB) g/dL 3.4-5.0 GLOBULIN (test code = GLOB) g/dL 2.7-4.2 ALBUMIN/GLOBULIN RATIO (test code = A/G) 0.75-1.50 CALCIUM (test code = CA) 8.7 mg/dL 8.4-10.2 N BILIRUBIN TOTAL (test code = BILT) mg/dL 0.2-1.2 SGOT/AST (test code = AST) IUnit/L 15-37 SGPT/ALT (test code = ALT) U/L 10-69 ALKALINE PHOSPHATASE TOTAL (test code = ALKP) IUnit/L 45-117 LACTIC [id number] 14:33:00* Test Item Value Reference Range Interpretation Comments LACTIC ACID (test code = LACT) 1.5 MMOL/L 0.4-1.9 N CBC W/AUTO [id number] 14:32:00* Test Item Value Reference Range Interpretation Comments WHITE BLOOD CELL (test code = WBC) 9.0 K/mm3 4.5-12.5 N RED BLOOD CELL (test code = RBC) 3.95 mill/mm3 3.7-5.2 N HEMOGLOBIN (test code = HGB) 12.7 gram/dL 11.5-15.5 N HEMATOCRIT (test code = HCT) 38.2 % 36.0-46.0 N MEAN CELL VOLUME (test code = MCV) 96.7 fL 80-98 N MEAN CELL HGB (test code = MCH) 32.2 picogram 27.0-33.0 N MEAN CELL HGB CONCETRATION (test code = MCHC) 33.2 gram/dL 33.0-36. 0 N RED CELL DISTRIBUTION WIDTH (test code = RDW) 13.8 % 11.6-16. 2 N RED CELL DISTRIBUTION WIDTH SD (test code = RDW-SD) 47.0 fL 39 .1-52.0 N PLATELET COUNT (test code = PLT) 130 K/mm3 150-450 L MEAN PLATELET VOLUME (test code = MPV) 12.4 fL 6.7-11.0 H NEUTROPHIL % (test code = NT%) 75.1 % 39.0-69.0 H LYMPHOCYTE % (test code = LY%) 16.0 % 25.0-55.0 L MONOCYTE % (test code = MO%) 8.7 % 0.0-10.0 N EOSINOPHIL % (test code = EO%) 0.1 % 0.0-5.0 N BASOPHIL % (test code = BA%) 0.1 % 0.0-1.0 N NEUTROPHIL # (test code = NT#) 6.76 K/mm3 1.8-7.7 N LYMPHOCYTE # (test code = LY#) 1.44 K/mm3 1.0-5.0 N MONOCYTE # (test code = MO#) 0.78 K/mm3 0-0.8 N EOSINOPHIL # (test code = EO#) 0.01 K/mm3 0.0-0.5 N BASOPHIL # (test code = BA#) 0.01 K/mm3 0.0-0.2 N MANUAL DIFF REQUIRED (test code = MDIFF) NO Influenza Virus Types A,B Olskwik2807-84-60 16:13:00* Test Item Value Reference Range Interpretation Comments Influenza Virus Types A,B Antigen (test code = 92036-9) NEGATIVE NEGATIVE [facility] Streptococcus Bbpwbk0367-90-02 15:56:00* Test Item Value Reference Range Interpretation Comments Group A Streptococcus Screen (test code = 69282-9) NEGATIVE NEG ATIVE [facility] [id number] 14:45:00 [facility] [address] [address] Patient Name: EUGENIO GREEN MR #: [id number] : 1950 Age/Sex: 67/F Req #: [id number] Adm Physician: Ordered by: AJIT ZHANG M.D. Report #: [id number] Location: MRI Room/Bed: Procedure: [id number] MRI/MRI BRAIN WO Exa m Date: Exam Time: REPORT STATUS: Signed H istory: Alzheimer's disease with late onset Comparison studies: CT head 008 Technique: Sagittal T2; axial DWI, FLAIR, MPGR, T1, Coronal FLAIR. Intravenous contrast: None Findings: Scalp: Normal in signal . No mas ses . Bone marrow: Normal in signal intensity. Extra-axial: No masses, no fluid collections. Brain sulci: Mildly prominent. Ventricles: Mildly prominent . No hydrocephalus . Parenchyma: Scattered and confluent T2/fla ir hyperintensities of the periventricular and deep white matter. Scattered hy perintensities at the brendon. Symmetric volume loss at the bilateral hippocampi. No masses, hemorrhage, acute or chronic vascular insults. Suprasellar re gion: No abnormalities. Craniocervical junction: No abnormalities. Patent for amen magnum. No Chiari one malformation. Vessels: Normal flow-voids in the arteries and sinuses. Incidentally noted 1 cm cystic structure in the right parotid gland superficial lobe anterior aspect. IMPRESSION: 1. No acute abnormalities. 2. Moderate to severe chronic microvascular ische leola changes of the white matter. 3. Diffuse and symmetric mild volume lo ss Signed by: DR Billy Tucker M.D. on 12/21/2017 2:50 PM Di ctated By: BILLY CRABTREE MD 49 Transcribed By: SALLIE on 12/21/171449 COPY TO: AJIT LAKE MD Stool Sllvphlalrtz0134-52-62 03:44:00* Test Item Value Reference Range Interpretation Comments Stool Calprotectin (test code = 85808-1) <16 0-120 Concentration Interpretation Follow-Up<16 - 50 ug/g Normal None>50 -120 ug/g Borderline Re-evaluate in 4-6 weeks >120 ug/g Abnormal Repeat as clinically indicatedPerformed at: [facility] LabAmoobi[address] [id number] Director: Nelson Arora MD, Phone: [phone] Central Texastool Ptanjcabavbs5806-06-48 03:44:00* Test Item Value Reference Range Interpretation Comments Stool Calprotectin (test code = 05655-7) <16 0-120 Concentration Interpretation Follow-Up<16 - 50 ug/g Normal None>50 -120 ug/g Borderline Re-evaluate in 4-6 weeks >120 ug/g Abnormal Repeat as clinically indicatedPerformed at: [email or web address] LabAmoobirp [address] [id number] Director: Nelson Arora MD, Phone: [phone] Medical CenterClostridium Difficile Toxin A & [id number] 14:20:00* Test Item Value Reference Range Interpretation Comments Clostridium Difficile Toxin A & B (test code = 058067468) NEGATIVE NEGATIVE Testing on stool aspirate specimens is outside ultrasound tester claims since specime n type not validated on this assay.[facility] Clostridium Difficile Toxin A & [id number] 14:20:00* Test Item Value Reference Range Interpretation Comments Clostridium Difficile Toxin A & B (test code = 646160422) NEGATIVE NEGATIVE Testing on stool aspirate specimens is outside ultrasound tester claims since specime n type not validated on this assay.[facility]ast[facility] Lactoferrin (LAB)2017-08-28 16:12:00* Test Item Value Reference Range Interpretation Comments Stool Lactoferrin (LAB) (test code = 84009-7) POSITIVE NEGATIVE H Testing on stool aspirate specimens is outside ultrasound tester claims since specime n type not validated on this assay.[facility] Lactoferrin (LAB)2017-08-28 16:12:00* Test Item Value Reference Range Interpretation Comments Stool Lactoferrin (LAB) (test code = 03575-7) POSITIVE NEGATIVE H Testing on stool aspirate specimens is outside ultrasound tester claims since specime n type not validated on this assay.[facility] CenterWhite Blood Znphc5867-98-99 12:10:00* Test Item Value Reference Range Interpretation Comments White Blood Count (test code = 6690-2) 8.99 4.8-10.8 [facility] CenterRed Blood Nyumj0882-24-04 12:10:00* Test Item Value Reference Range Interpretation Comments Red Blood Count (test code = 789-8) 4.14 3.6-5.1 [facility] CenterHemoglobin2018-06-15 12:10:00* Test Item Value Reference Range Interpretation Comments Hemoglobin (test code = 59948-3) 13.6 12.0-16.0 [facility] CenterHematocrit2018-06-15 12:10:00* Test Item Value Reference Range Interpretation Comments Hematocrit (test code = 4544-3) 39.8 34.2-44.1 [facility] CenterMean Corpuscular Hvfcqr1129-30-37 12:10:00* Test Item Value Reference Range Interpretation Comments Mean Corpuscular Volume (test code = 787-2) 96.1 81-99 [facility] CenterMean Corpuscular Ixvbtefdmr5227-19-46 12:10:00* Test Item Value Reference Range Interpretation Comments Mean Corpuscular Hemoglobin (test code = 785-6) 32.9 28-32 H [facility] CenterMean Corpuscular Hemoglobin Concent 2017-08-24 12:10:00* Test Item Value Reference Range Interpretation Comments Mean Corpuscular Hemoglobin Concent (test code = 786-4) 34.2 31-35 [facility] CenterRed Cell Distribution Nqdxk9565-91-87 12:10:00* Test Item Value Reference Range Interpretation Comments Red Cell Distribution Width (test code = 96432-0) 12.4 11.7 -14.4 [facility] CenterPlatelet Kqwnc6523-76-92 12:10:00* Test Item Value Reference Range Interpretation Comments Platelet Count (test code = 777-3) 161 140-360 [facility] CenterNeutrophils (%) (Auto)2017-08-24 12:10:00 * Test Item Value Reference Range Interpretation Comments Neutrophils (%) (Auto) (test code = 21422-2) 58.6 38.7-80.0 [facility] CenterLymphocytes (%) (Auto)2017-08-24 12:10:00 * Test Item Value Reference Range Interpretation Comments Lymphocytes (%) (Auto) (test code = 736-9) 31.7 18.0-39.1 [facility] CenterMonocytes (%) (Auto)2017-08-24 12:10:00* Test Item Value Reference Range Interpretation Comments Monocytes (%) (Auto) (test code = 5905-5) 7.9 4.4-11.3 [facility] CenterEosinophils (%) (Auto)2017-08-24 12:10:00 * Test Item Value Reference Range Interpretation Comments Eosinophils (%) (Auto) (test code = 713-8) 0.6 0.0-6.0 [facility] CenterBasophils (%) (Auto)2017-08-24 12:10:00* Test Item Value Reference Range Interpretation Comments Basophils (%) (Auto) (test code = 706-2) 0.4 0.0-1.0 [facility] CenterIM GRANULOCYTES %2017-08-24 12:10:00* Test Item Value Reference Range Interpretation Comments IM GRANULOCYTES % (test code = IM GRANULOCYTES %) 0.8 0.0- 1.0 [facility] CenterNeutrophils # (Auto)2017-08-24 12:10:00* Test Item Value Reference Range Interpretation Comments Neutrophils # (Auto) (test code = 751-8) 5.3 2.1-6.9 [facility] CenterLymphocytes # (Auto)2017-08-24 12:10:00* Test Item Value Reference Range Interpretation Comments Lymphocytes # (Auto) (test code = 59521-1) 2.9 1.0-3.2 [facility] CenterMonocytes # (Auto)2017-08-24 12:10:00* Test Item Value Reference Range Interpretation Comments Monocytes # (Auto) (test code = 742-7) 0.7 0.2-0.8 [facility] CenterEosinophils # (Auto)2017-08-24 12:10:00* Test Item Value Reference Range Interpretation Comments Eosinophils # (Auto) (test code = 711-2) 0.1 0.0-0.4 [facility] CenterBasophils # (Auto)2017-08-24 12:10:00* Test Item Value Reference Range Interpretation Comments Basophils # (Auto) (test code = 704-7) 0.0 0.0-0.1 [facility] CenterAbsolute Immature Granulocyte (auto 2017-08-24 12:10:00* Test Item Value Reference Range Interpretation Comments Absolute Immature Granulocyte (auto (christophe t code = Absolute Immature Granulocyte (auto) 0.07 0-0.1 [facility] CenterWhite Blood Nkguy1517-47-06 12:10:00* Test Item Value Reference Range Interpretation Comments White Blood Count (test code = 6690-2) 8.99 4.8-10.8 [facility] CenterRed Blood Hudtp2271-54-43 12:10:00* Test Item Value Reference Range Interpretation Comments Red Blood Count (test code = 789-8) 4.14 3.6-5.1 [facility] CenterHemoglobin2018-06-15 12:10:00* Test Item Value Reference Range Interpretation Comments Hemoglobin (test code = 69893-6) 13.6 12.0-16.0 [facility] CenterHematocrit2018-06-15 12:10:00* Test Item Value Reference Range Interpretation Comments Hematocrit (test code = 4544-3) 39.8 34.2-44.1 [facility] CenterMean Corpuscular Gonxid7113-74-37 12:10:00* Test Item Value Reference Range Interpretation Comments Mean Corpuscular Volume (test code = 787-2) 96.1 81-99 [facility] CenterMean Corpuscular Jlkwaavwwj6851-21-92 12:10:00* Test Item Value Reference Range Interpretation Comments Mean Corpuscular Hemoglobin (test code = 785-6) 32.9 28-32 H [facility] CenterMean Corpuscular Hemoglobin Concent 2017-08-24 12:10:00* Test Item Value Reference Range Interpretation Comments Mean Corpuscular Hemoglobin Concent (test code = 786-4) 34.2 31-35 [facility] CenterRed Cell Distribution Vlduh3921-36-85 12:10:00* Test Item Value Reference Range Interpretation Comments Red Cell Distribution Width (test code = 22568-1) 12.4 11.7 -14.4 [facility] CenterPlatelet Fxqek2661-70-25 12:10:00* Test Item Value Reference Range Interpretation Comments Platelet Count (test code = 777-3) 161 140-360 [facility] CenterNeutrophils (%) (Auto)2017-08-24 12:10:00 * Test Item Value Reference Range Interpretation Comments Neutrophils (%) (Auto) (test code = 08460-9) 58.6 38.7-80.0 [facility] CenterLymphocytes (%) (Auto)2017-08-24 12:10:00 * Test Item Value Reference Range Interpretation Comments Lymphocytes (%) (Auto) (test code = 736-9) 31.7 18.0-39.1 [facility] CenterMonocytes (%) (Auto)2017-08-24 12:10:00* Test Item Value Reference Range Interpretation Comments Monocytes (%) (Auto) (test code = 5905-5) 7.9 4.4-11.3 [facility] CenterEosinophils (%) (Auto)2017-08-24 12:10:00 * Test Item Value Reference Range Interpretation Comments Eosinophils (%) (Auto) (test code = 713-8) 0.6 0.0-6.0 [facility] CenterBasophils (%) (Auto)2017-08-24 12:10:00* Test Item Value Reference Range Interpretation Comments Basophils (%) (Auto) (test code = 706-2) 0.4 0.0-1.0 [facility] CenterIM GRANULOCYTES %2017-08-24 12:10:00* Test Item Value Reference Range Interpretation Comments IM GRANULOCYTES % (test code = IM GRANULOCYTES %) 0.8 0.0- 1.0 [facility] CenterNeutrophils # (Auto)2017-08-24 12:10:00* Test Item Value Reference Range Interpretation Comments Neutrophils # (Auto) (test code = 751-8) 5.3 2.1-6.9 [facility] CenterLymphocytes # (Auto)2017-08-24 12:10:00* Test Item Value Reference Range Interpretation Comments Lymphocytes # (Auto) (test code = 40276-8) 2.9 1.0-3.2 [facility] CenterMonocytes # (Auto)2017-08-24 12:10:00* Test Item Value Reference Range Interpretation Comments Monocytes # (Auto) (test code = 742-7) 0.7 0.2-0.8 [facility] CenterEosinophils # (Auto)2017-08-24 12:10:00* Test Item Value Reference Range Interpretation Comments Eosinophils # (Auto) (test code = 711-2) 0.1 0.0-0.4 [facility] CenterBasophils # (Auto)2017-08-24 12:10:00* Test Item Value Reference Range Interpretation Comments Basophils # (Auto) (test code = 704-7) 0.0 0.0-0.1 [facility] CenterAbsolute Immature Granulocyte (auto 2017-08-24 12:10:00* Test Item Value Reference Range Interpretation Comments Absolute Immature Granulocyte (auto (christophe t code = Absolute Immature Granulocyte (auto) 0.07 0-0.1 [facility] CenterURINE AND JORHC1190-63-99 17:27:49 Negative (04/22/15 11:27 AM)[facility] SHQWX8573[facility]14-57 17:27:49<1 [facility] LXQUL2888-57-51 17:27:491[facility] WKMHB0110-31-61 17:27:49Negative (04/22/15 11:27 AM)[facility] FVXBY1206-41-62 17:27:49Clear (04/22/15 11:27 AM)[facility] STOOL 2015-04-22 17:27:495.0[facility] PEDWG3279-04-39 17:27:491.018 [facility] UENNK5487-91-87 17:27:49Negative *NA*(04/22/15 11:27 AM)[facility] YOTWO8016-57-86 17:27:49Small *ABN*(04/22/15 11:27 AM)[facility]annCHEM XVZFC5774-11-03 15:45:0020[facility]annCHEM PANEL 2015-04-22 15:45:003.6[facility]annCHE[facility] ZTOFX5717-58-64 15:45:0013.9[facility]annCHEM TWYJO0838-55-92 15:45:000.9[facility]annCHEM NIVYS1759-60-42 15:45:0073[facility]annCHEM GJSHC8232-41-94 15:45:17750Rbzxsgby HermannCHEM NCQVI1730-97-36 15:45:000.85[facility]annCHEM EUEMX0447-18-30 15:45:58449 [facility]CHE[facility] QJZXS4159-00-02 15:45:008.7[facility]annCHEM PANEL 2015-04-22 15:45:007.0[facility]annCHEM FNCSP9379-86-69 15:45:003.4[facility]annCHEM FFJUB2975-74-22 15:45:0027[facility]annCHEM QSFUB3500-27-69 15:45:0099[facility]annCHEM NCBSY4861-32-88 15:45:003.9[facility]annCHEM TMIES4084-22-87 15:45:0018[facility]annCHEM TUKCC6117-01-60 15:45:000.4 [facility]annCHE[facility] UDHRC9487-30-18 15:45:0016[facility]annCHEM PANEL 2015-04-22 15:45:0097[facility]annCHEM YCYAX5980-51-65 15:45:0017[facility] YgbgiquARVWBXXXCL4756-83-81 15:45:10362Oypuluvn WrxdxwmQPRDLJEHAL2163-36-02 15:45:008.5[facility] TqcgdsyKRIDBWXPBZ4179-29-22 15:45:0013.4[facility] QKREMACYYX5239-07-15 15:45:00* Test Item Value Reference Range Interpretation Comments MCH (test code = MCH) 32.2 pg 27.0-31.0 [facility] KaqypqjYLJEKXONPI4777-19-01 15:45:0035.7[facility]annHEMATOLOGY 2015-04-22 15:45:0098.5[facility] UkcfnrkHRSUMVGHQG0627-16-75 15:45:0032.7[facility] PpnutwrBYEVTRDOCH7138-53-12 15:45:006.8[facility] UxorumaRMKTBNVCMG3793-47-18 15:45:003.62[facility] PguwdrbBDBADEYMJW3085-34-00 15:45:0011.7[facility] QZQECOTJDI6337-01-53 15:45:000.6[facility] LissimuPAEREPXBCP7947-41-02 15:45:000.2 [facility] LwksqbrDBKWUHNNFA3790-90-40 15:45:001+ *ABN*(04/22/15 9:45 AM)[facility] WaxhbmlTLUPMQVQCX3282-31-19 15:45:000.1[facility] NytwatwKGCTWMZJMX0537-90-18 15:45:0066.5[facility] DyqqshaYZFANAKYIE0458-57-74 15:45:0020.5[facility] VSTMTBLPGF5840-70-69 15:45:009.6[facility] OdnjnakFVWLLMEKDT0643-04-05 15:45:002.6 [facility] DcwboupRHFGAWJQYX2750-15-24 15:45:000.8[facility]annHEMATOLOGY 2015-04-22 15:45:001.4[facility] LeaismrYHIHMTUGZH3155-08-23 15:45:004.5[facility]
[2019-12-22 17:04] LABS: ALBUMIN 3.6 g/dL (3.5-5.0); ALBUMIN/GLOBULIN RATIO 1.4 (0.8-2.0); ANION GAP 16.6 mmol/L (8-16); CALCIUM 8.6 mg/dL (8.4-10.2); CREATININE, SERUM 1.24 mg/dL (0.57-1.11); POTASSIUM 3.6 mmol/L (3.5-5.1)
--- NOTE | 2019-12-22 17:49 | Diagnostic Imaging Report ---
CT LUMBAR SPINE WO HISTORY: Fall, low back pain COMPARISON: None. TECHNIQUE: Axial CT images of the lumbar spine were obtained without contrast. Coronal and sagittal reconstructions obtained from the axial data. One or more of the following dose reduction techniques were used: Automated exposure control, adjustment of the mA and/or kV according to patient size, and/or utilization of iterative reconstruction technique. DISCUSSION: There are 5 nonrib-bearing lumbar vertebral bodies. Lumbar lordosis is preserved. There is no significant scoliosis or subluxation. Mild compression fracture along the L2 superior endplate is not associated with significant retropulsion. There is no involvement of the pedicles or posterior elements. No additional fracture, compression deformity, or destructive osseous lesion is seen. No gross spinal canal mass is seen. The paravertebral and paraspinal soft tissues are unremarkable. The disc spaces are preserved with mild spondylotic changes. No gross canal or foraminal stenosis is seen. There is mild to moderate facet arthrosis in the lower lumbar spine. Mild bilateral sacroiliac degenerative changes are present as well. Approximately 2.8 cm right adrenal fluid density nodule is compatible with an adenoma. Aortoiliac calcified atherosclerosis is present. IMPRESSION: 1. Acute L2 vertebral compression fracture without retropulsion. 2. Mild multilevel spondylosis. Signed by: Dr. Amari Brown M.D. on 12/22/2019 5:46 PM
[2019-12-22] MEDS ORDERED: SODIUM CHLORIDE 0.9% 500ML 500 ML IV STA (18:23)
--- NOTE | 2019-12-22 18:23 | NUR ---
PATIENT FILLED PRESCRIPTIONS FOR TYLENOL #4, 90 TABLETS, TAKE 1 TAB TID ON 12/08/2019 - BOTTLE WAS EMPTY UPON ARRIVAL 12/22/2019 PATIENT FILLED PRESCRIPTION FOR 4 MG TIZANIDINE, 30 TABLETS, TAKE 1 TAB AT BEDTIME ON 12/17/2019 - BOTTLE WAS EMPTY UPON ARRIVAL 12/22/2019
[2019-12-22 18:27] LABS: BILIRUBIN,URINE NEGATIVE (NEGATIVE); CLARITY,URINE CLEAR (CLEAR); COLOR,URINE YELLOW (YELLOW); KETONES,URINE NEGATIVE (NEGATIVE); LEUKOCYTE ESTERASE ,URINE NEGATIVE (NEGATIVE); NITRITE,URINE NEGATIVE (NEGATIVE); PROTEIN,URINE DIPSTICK NEGATIVE (NEGATIVE); URINE UROBILINOGEN 0.2 mg/dL (0.2 - 1)
[2019-12-22 18:40] LABS: BACTERIA,URINE RARE /HPF; EPITHELIAL CELLS,URINE FEW /LPF
[2019-12-22 20:12] VITALS: BP 119/63
--- NOTE | 2019-12-26 09:18 | Emergency Department Note ---
History of Present Illnes History of Present Illness Chief Complaint: General Medicine Complaints History of Present Illness This is a 69 year old female presents to hypotension. She states she had been taking a lot of muscle relaxers and T3 as well as some opioid pain medications. She fell onto her bottom recently and has some pain in her low back. No other concerns. 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 Mode: [place] Irradiated Fuel Handler Required: No Onset (how long ago): day(s) Location: None Quality: Hypotension Radiation: Reports non-radiation Severity: mild Onset quality: gradual Duration (how long): day(s) (1) Timing of current episode: unable to specify Progression: unchanged Chronicity: new Context: Denies recent illness, Denies recent surgery Relieving factors: none Exacerbating factors: none Associated symptoms: Reports denies other symptoms Treatments prior to arrival: none Past Medical/Family History Physician Review I have reviewed the patient's past medical and family history. Any updates have been documented here. Past Medical History Recent Fever: No Clinical Suspicion of Infectio: No New/Unexplained Change in Ment: No Past Medical History: CHF Other Medical History: PER FAMILY LOW KIDNEY FUNCTION Past Surgical History: Hysterectomy, Knee Replacement Other Surgery: OPERATION ON RING FINGER Social History Smoking Cessation: Never Smoker Counseling Performed: No Alcohol Use: None Any Illegal Drug Use: No Other Last Tetanus: OUT OF DATE Any Pre-Existing Lines (PICC,: No Review of Systems Review of Systems Constitutional: Reports as per HPI EENTM: Reports no symptoms Cardiovascular: Reports no symptoms Respiratory: Reports no symptoms Gastrointestinal: Reports no symptoms Genitourinary: Reports no symptoms Musculoskeletal: Reports as per HPI, Reports back pain Integumentary: Reports no symptoms Neurological: Reports no symptoms Psychological: Reports no symptoms Endocrine: Reports no symptoms Hematological/Lymphatic: Reports no symptoms Physical Exam Related Data Allergies: Coded Allergies: No Known Allergies (Unverified , 04/26/18) Triage Vital Signs Vital Signs Date Time Temp Pulse Resp B/P (MAP) Pulse Ox O2 Delivery O2 Flow Rate FiO2 12/22/19 16:08 98.0 63 20 117/96 100 Room Air Vital signs reviewed: Yes Physical Exam CONSTITUTIONAL Constitutional: Present well-developed, Present well-nourished HENT HENT: Present normocephalic, Present atraumatic, Present oropharynx clear/moist, Present nose normal HENT L/R: Present left ext ear normal, Present right ext ear normal EYES Eyes: Reports PERRL, Reports conjunctivae normal NECK Neck: Present ROM normal PULMONARY Pulmonary: Present effort normal, Present breath sounds normal CARDIOVASCULAR Cardiovascular: Present regular rhythm, Present heart sounds normal, Present capillary refill normal, Present normal rate GASTROINTESTINAL Abdominal: Present soft, Present nontender, Present bowel sounds normal GENITOURINARY Genitourinary: Present exam deferred SKIN Skin: Present warm, Present dry MUSCULOSKELETAL Musculoskeletal: Present ROM normal; Absent tenderness NEUROLOGICAL Neurological: Present alert, Present oriented x 3, Present no gross motor or sensory deficits PSYCHOLOGICAL Psychological: Present mood/affect normal, Present judgement normal Results Laboratory Result Diagram: 12/22/19 1630 12/22/19 1630 Lab results reviewed: Yes Imaging Imaging results reviewed: Yes Procedures 12 Lead ECG Interpretation ECG Interpretation : Irradiated Fuel Handler: Interpreted by ED physician Rhythm: sinus rhythm Rate: normal QRS axis: normal ST segments normal: Yes T waves normal: Yes Clinical Impression: non-specific ECG Assessment & Plan Medical Decision Making MDM 69 y.o f presents for hypotension and low back pain. initial diff includes polypharmacy, dehydration, arrythmia, etc. Work up shows VSS, Within acceptable limits. Benign labs. Ct L spine shows compression fracture of L2. She will f/u w/ Dr. eckert in clinic. Diagnosis favors polypharmacy. Instructed her to stop taking sedating medications and follow up with her PCP. Appropriate for DC. Assessment & Plan Final Impression: (1) Polypharmacy Depart Disposition: HOME, SELF-CARE Last Vital Signs Date Time Temp Pulse Resp B/P (MAP) Pulse Ox O2 Delivery O2 Flow Rate FiO2 12/22/19 20:12 57 12 100 12/22/19 18:29 96/58 Room Air 12/22/19 16:08 98.0 Home Meds Reported Medications Potassium Chloride (POTASSIUM CHLORIDE) 10 Meq Tab.er.prt, 10 MEQ PO, TAB 08/27/18 [place]-3 Fatty Acids (OMEGA-3) 1,000 Mg Capsule 18 Estradiol (ESTRADIOL) 1 Mg Tab, 0.5 MG PO DAILY, #30 TAB 08/27/18 [Thyroxine L] No Conflict Check, 100 MCG 18 Lisinopril (LISINOPRIL) 10 Mg Tablet, 20 MG PO DAILY, #30 TAB 6/18/18 Progesterone,Micronized (PROGESTERONE) 200 Mg Capsule 08/27/17 Atorvastatin Calcium (ATORVASTATIN CALCIUM) 20 Mg Tablet, 20 MG PO HS, #30 TAB 08/27/17 Furosemide (FUROSEMIDE) 40 Mg Tablet, 80 MG PO BID, #30 TAB 02/29/16 Metoprolol Succinate (METOPROLOL SUCCINATE) 50 Mg Tab.er.24h, 50 MG PO DAILY, MG 02/29/16 SHAN HU MD Dec 26, 2019 09:18
== END 2019-12-22 20:25 | disposition home or self-care (01) ==
LOC: ER 16:59
DX: I95.2 Hypotension due to drugs (principal); M54.5 Low back pain; W18.30XA Fall on same level, unspecified, initial encounter
CPT/HCPCS: 36415; 72131; 80053; 81001; 83880; 84484; 85025; 93005; 99284; J7040

== ENCOUNTER 2020-10-07 10:03 | Emergency (ER) | payer MEDICARE, BC ==
[~2020-10-07] VITALS: Ht 170.2 cm; Wt 94.3 kg
[2020-10-07 10:39] LABS: BASOPHILS # (AUTO) 0.1 (0.0-0.1); BASOPHILS % 0.7 % (0.0-1.0); EOSINOPHILS # (AUTO) 0.1 (0.0-0.4); EOSINOPHILS % 1.3 % (0.0-6.0); HEMATOCRIT 45.9 % (34.2-44.1); LYMPHOCYTES # (AUTO) 2.4 (1.0-3.2); LYMPHOCYTES % 28.2 % (18.0-39.1); MEAN CORPUSCULAR HEMOGLOBIN 32.2 pg (28-32); MEAN CORPUSCULAR HGB CONC 32.7 g/dL (31-35); MEAN CORPUSCULAR VOLUME 98.5 fL (81-99); MONOCYTES # (AUTO) 0.8 (0.2-0.8); MONOCYTES % 9.5 % (4.4-11.3); NEUTROPHILS # (AUTO) 5.2 (2.1-6.9); NEUTROPHILS % 59.7 % (38.7-80.0); PLATELET COUNT 232 x10e3/uL (140-360); RED BLOOD COUNT 4.66 x10e6/uL (3.6-5.1); RED CELL DISTRIBUTION WIDTH 12.8 % (11.7-14.4)
[2020-10-07] MEDS: LACTATED RINGER'S 1,000 ML INJ ONE (10:43)
[2020-10-07 10:59] LABS: ALBUMIN 4.1 g/dL (3.5-5.0); ALBUMIN/GLOBULIN RATIO 1.4 (0.8-2.0); ANION GAP 16.6 mmol/L (8-16); CALCIUM 8.6 mg/dL (8.4-10.2); CREATININE, SERUM 0.91 mg/dL (0.57-1.11); POTASSIUM 3.6 mmol/L (3.5-5.1)
== END 2020-10-07 10:58 | disposition home or self-care (01) ==
LOC: ER 10:41
DX: R19.7 Diarrhea, unspecified (principal); I50.9 Heart failure, unspecified
CPT/HCPCS: 36415; 80053; 83690; 85025; 99283

== ENCOUNTER 2021-03-25 12:29 | Emergency (ER) | payer MEDICARE, BC ==
[~2021-03-25] VITALS: Ht 167.6 cm; Wt 90.7 kg
[2021-03-25 13:24] LABS: BASOPHILS % 0.6 % (0.0-1.0); EOSINOPHILS # (AUTO) 0.2 (0.0-0.4); EOSINOPHILS % 3.6 % (0.0-6.0); HEMATOCRIT 40.5 % (34.2-44.1); HEMOGLOBIN 12.8 g/dL (12.0-16.0); LYMPHOCYTES # (AUTO) 1.3 (1.0-3.2); LYMPHOCYTES % 24.5 % (18.0-39.1); MEAN CORPUSCULAR HEMOGLOBIN 32.5 pg (28-32); MEAN CORPUSCULAR HGB CONC 31.6 g/dL (31-35); MEAN CORPUSCULAR VOLUME 102.8 fL (81-99); MONOCYTES # (AUTO) 0.6 (0.2-0.8); MONOCYTES % 10.9 % (4.4-11.3); NEUTROPHILS # (AUTO) 3.2 (2.1-6.9); NEUTROPHILS % 60.2 % (38.7-80.0); PLATELET COUNT 120 x10e3/uL (140-360); RED BLOOD COUNT 3.94 x10e6/uL (3.6-5.1); RED CELL DISTRIBUTION WIDTH 13.5 % (11.7-14.4)
[2021-03-25 13:30] LABS: INR 0.86; PROTHROMBIN TIME 12.4 seconds (11.9-14.5)
[2021-03-25 13:31] LABS: PARTIAL THROMBOPLASTIN TIME 24.8 seconds (23.8-35.5)
[2021-03-25 13:37] LABS: ALBUMIN 3.3 g/dL (3.5-5.0); ANION GAP 10.3 mmol/L (8-16); CALCIUM 9.3 mg/dL (8.4-10.2); CREATININE, SERUM 0.83 mg/dL (0.57-1.11); POTASSIUM 3.3 mmol/L (3.5-5.1)
== END 2021-03-25 14:38 | disposition home or self-care (01) ==
LOC: ER 12:36
DX: U07.1 COVID-19 (principal); R05.9 Cough, unspecified; I50.9 Heart failure, unspecified; N18.9 Chronic kidney disease, unspecified
CPT/HCPCS: 36415; 71045; 80053; 83690; 83880; 84484; 85025; 85610; 85730; 93005; 99284; U0002

== ENCOUNTER → 2021-04-21 | Day surgery (SDC) | payer MEDICARE, BC ==
[~2021-04-21] MED LIST changes: +AMLODIPINE BESYL5 MG PO; +ARAVA20 MG PO; +ARICEPT5 MG PO; +CARVEDILOL25 MG PO; +COLESTIPOL HCL1 GM PO; +FLUOXETINE HCL20 M1 PO; +GABAPENTIN300 MG PO; +GLUCAGON FOR INJ 1 MG VIAL ONE; +HYDROCHLOROTHIA25 MG PO; +HYOSCYAMINE SULFATE 0.5 MG/ML INJ ONE; +LEVOCETIRIZINE D5 MG PO; +LEVOTHYROXINE50 MCG PO; +LIDOCAINE HCL 2% LOCAL INJ 5 ML SDV VIAL INJ ONE; +LOSARTAN POTAS100 MG PO; +PANTOPRAZOLE SO40 MG PO; +PROPOFOL IV EMULSION 10 MG/ML 20 ML VIAL ONE; +TRAZODONE HCL50 MG PO
[2021-04-21 15:25] VITALS: BP 110/78
[2021-04-21 15:41] LABS: WBC,FECAL (FECAL LACTOFERRIN) POSITIVE (NEGATIVE)
[2021-04-22 07:30] LABS: C DIFFICILE TOXIN A&B AMP PROB NEGATIVE (NEGATIVE)
== END | disposition home or self-care (01) ==
LOC: OR 12:16
PROVIDERS: ATTEND Internal Medicine Gastroenterology
DX: K62.89 Other specified diseases of anus and rectum (principal); D12.2 Benign neoplasm of ascending colon; K64.8 Other hemorrhoids; K21.9 Gastro-esophageal reflux disease without esophagitis; E03.9 Hypothyroidism, unspecified; F03.90 Unspecified dementia, unspecified severity, without behavioral disturbance, psychotic disturbance, mood disturbance, and anxiety; I10 Essential (primary) hypertension; F41.9 Anxiety disorder, unspecified; Z79.899 Other long term (current) drug therapy; Z68.31 Body mass index [BMI] 31.0-31.9, adult; Z87.01 Personal history of pneumonia (recurrent); Z86.16 Personal history of COVID-19
CPT/HCPCS: 45380; 45385; 83630; 83993; 87045; 87177; 87328; 87493; 88305; J1610; J1980; J2001; J2704; 45378

== ENCOUNTER → 2024-11-27 | Outpatient (REF) | payer MEDICARE, OTHER ==
[~2024-11-27] MED LIST changes: -GLUCAGON FOR INJ 1 MG VIAL ONE; -HYOSCYAMINE SULFATE 0.5 MG/ML INJ ONE; -LIDOCAINE HCL 2% LOCAL INJ 5 ML SDV VIAL INJ ONE; -PROPOFOL IV EMULSION 10 MG/ML 20 ML VIAL ONE
== END ==
LOC: MRI 12:19
PROVIDERS: ATTEND Psychiatry & Neurology Clinical Neurophysiology
DX: G91.2 (Idiopathic) normal pressure hydrocephalus (principal)
CPT/HCPCS: 70551